=== PATIENT | female | born 1975 | race Caucasian/White ===

== ENCOUNTER 2016-11-14 15:51 | Inpatient (IN) | payer OTHER ==
[~2016-11-14] VITALS: Ht 165.1 cm; Wt 54.9 kg
[2016-11-14] MEDS ORDERED: ONDANSETRON 4 MG INJ IV STA (19:12)
[2016-11-14] MEDS ORDERED: SOD CHLORIDE 0.9% 1,000 ML IV STA (19:12)
[2016-11-14 19:18] VITALS: TEMP 98.3
[2016-11-14 19:19] LABS: URINE BLOOD (Dip) POC Negative (NEGATIVE)
[2016-11-14 19:34] LABS: ADD SCAN DIFF NO
[2016-11-14 19:45] LABS: ADD UMIC NO; UR ASCORBIC ACID NEGATIVE (NEGATIVE); UR BILIRUBIN (Dip) NEGATIVE (NEGATIVE); UR BLOOD (Dip) NEGATIVE (NEGATIVE); UR CLARITY CLEAR (CLEAR); UR COLOR YELLOW (YELLOW); UR GLUCOSE (Dip) NEGATIVE (NEGATIVE); UR KETONES (Dip) TRACE mg/dL (NEGATIVE); UR LEUKOCYTE ESTERASE (Dip) NEGATIVE Leu/ul (NEGATIVE); UR NITRITE (Dip) NEGATIVE (NEGATIVE); UR SPECIFIC GRAVITY (Dip) 1.028 (1.003-1.030); UR TOTAL PROTEIN (Dip) NEGATIVE (NEGATIVE); UR UROBILINOGEN (Dip) NEGATIVE (NEGATIVE)
[2016-11-14 19:46] LABS: BASOPHILS % 0.4 % (0.0-2.0); EOSINOPHILS # 0.2 10^3/ul (0.0-0.5); EOSINOPHILS % 2.9 % (0.0-7.0); HEMATOCRIT 32.5 % (37.0-47.0); HEMOGLOBIN 9.5 g/dl (12.0-16.0); LYMPHOCYTES # 0.9 10^3/ul (0.8-2.9); LYMPHOCYTES % 15.7 % (15.0-51.0); MEAN CORPUSCULAR HEMOGLOBIN 21.6 pg (29.0-33.0); MEAN CORPUSCULAR HGB CONC 29.2 g/dl (32.0-37.0); MEAN CORPUSCULAR VOLUME 73.9 fl (82.0-101.0); MEAN PLATELET VOLUME 12.7 fl (7.4-10.4); MONOCYTE # 0.5 10^3/ul (0.3-0.9); MONOCYTES % 9.7 % (0.0-11.0); NEUTROPHILS % 71.1 % (39.0-77.0); PLATELET COUNT 298 10^3/UL (140-415); RED CELL DISTRIBUTION WIDTH 15.2 % (11.5-14.5); WHITE BLOOD COUNT 5.6 10^3/ul (4.8-10.8)
[2016-11-14 20:00] LABS: INR 0.94; PROTIME 12.6 Sec (12.2-14.2)
[2016-11-14 20:05] LABS: ALANINE AMINOTRANSFERASE 22 IU/L (13-69); ALBUMIN 4.7 g/dl (3.3-4.9); ALBUMIN/GLOBULIN RATIO 1.67; ALKALINE PHOSPHATASE 39 IU/L (42-121); ANION GAP 14 (8-16); ASPARTATE AMINO TRANSFERASE 15 IU/L (15-46); BILIRUBIN,INDIRECT 0.2 mg/dl (0-1.1); BILIRUBIN,TOTAL 0.2 mg/dl (0.2-1.3); BLOOD UREA NITROGEN 17 mg/dl (7-20); CALCIUM 9.2 mg/dl (8.4-10.2); CARBON DIOXIDE 30 mmol/L (21-31); CHLORIDE 99 mmol/L (97-110); GLUCOSE 91 mg/dl (70-220); SODIUM 140 mmol/L (135-144); TOTAL PROTEIN 7.5 g/dl (6.1-8.1)
[2016-11-14 20:20] LABS: TROPONIN-I < 0.012 ng/ml (0.00-0.12)
[2016-11-14] MEDS ORDERED: SOD CHLORIDE 0.9% 100 ML ONE (20:23)
[2016-11-14] MEDS ORDERED: IOHEXOL 300MG/ML 150 ML BTL ONE (20:23)
--- NOTE | 2016-11-14 20:24 | RADRPT ---
PROCEDURE: US Pelvis. CLINICAL INDICATION: 41-year-old female with ovarian cysts and history of weight loss. Not stated . TECHNIQUE: Multiple sonographic images of the pelvis were obtained utilizing a transabdominal and endovaginal technique. The images were reviewed on a PACS workstation. COMPARISON: No. FINDINGS: The uterus is visualized and measures 8.1 cm sagittal by 4.3 cm AP by 5.4 cm transverse. The endomet rial echo complex is inhomogeneous and measures up to 1.3 cm. There is no evidence for free fluid. T he right ovary has a normal echotexture and measures 3.2 x 2.4 cm . The left ovary has a normal ech otexture and measures 3 x 2.2 x 3.2 cm a 1.4 some left ovarian cyst is identified. No adnexal malgorzata s are noted. There is a hypoechoic area in the cul-de-sac which may represent a vascular marking or fluid. The technologist denies free fluid. The appearance is benign. IMPRESSION: 1. The endometrial stripe is thickened measuring 1.3 cm and appears slightly inhomogeneous. Follow -up imaging is recommended. 2. Hypoechoic subserosal dorsal lower uterine fibroid measuring 1.9 x 1.7 x 1.9 cm. 3. Normal blood flow to both ovaries. RPTAT:AAJJ Physician Ciaran Date Time Electronically viewed and signed by Physician Ciaran on 11/14/2016 20:23 MILLIE/
[2016-11-14 20:32] LABS: IRON 25 ug/dl (35-150)
--- NOTE | 2016-11-14 20:34 | RADRPT ---
PROCEDURE: XR Chest AP portable CLINICAL INDICATION: Abdominal pain TECHNIQUE: An AP portable radiograph of the chest was submitted. COMPARISON: None. FINDINGS: Support Hardware: None Cardiovascular: The cardiovascular silhouette appears unremarkable. Lung Clinton: The lung clinton appear clear with no nodule, alveolar infiltrate, or interstitial promi nence evident. Pleural Spaces: No pneumothorax or pleural effusion is identified. Osseous Structures: Mild diffuse degenerative endplate changes are seen to the thoracic spine. Soft Tissues: The soft tissues appear unremarkable. IMPRESSION: Unremarkable portable chest. Physician Anastacia Date Time Electronically viewed and signed by Physician Anastacia on 11/14/2016 20:34 RH/
[2016-11-14 20:35] LABS: CARCINOEMBRYONIC ANTIGEN 0.4 ng/ml (0.0-5.0)
[2016-11-14 20:41] LABS: TOTAL IRON BINDING CAPACITY 439 ug/dl (241-421)
[2016-11-14 21:09] LABS: FERRITIN 4.3 ng/ml (6.2-137.0)
[2016-11-14 22:00] VITALS: PULSE 86
[2016-11-14] MEDS ORDERED: POTASSIUM CHLORIDE (SR) 20 MEQ TAB PO ONE (22:15)
--- NOTE | 2016-11-14 22:17 | ERA ---
ER Documentation Chief Complaint Date/Time DATE: 11/14/16 TIME: 22:06 Chief Complaint Sent from MD for evaluation abnormal labs HPI 41-year-old woman referred here by her hematology oncologist for recent unexplained weight loss, over the last year she has lost over 80 pounds. She has had nausea, intermittent clear nonbloody nonbilious emesis, and multiple loose stools. She states she has body aches and pains all over including the chest back and abdomen. Her vomiting and diarrhea symptoms have been increasing recently. She has had no blood per rectum or melena. She denies hematuria or dysuria, no exertional chest pain, no fevers or chills, no headache or blurry vision. ROS All systems reviewed and are negative except as per history of present illness. Allergies Allergies: Coded Allergies: acetaminophen (Verified Allergy, Intermediate, 11/14/16) PMhx/Soc None History of Surgery: Yes (tuballigation ) Anesthesia Reaction: No Hx Neurological Disorder: No Hx Respiratory Disorders: No Hx Cardiac Disorders: Yes (hyperlipedemia) Hx Psychiatric Problems: No Hx Miscellaneous Medical Probl: Yes (anemia, "liver problems") Hx Alcohol Use: No Hx Substance Use: No Hx Tobacco Use: No Smoking Status: Never smoker FmHx Patient's mother had a history of uterine cancer and her father had prostate cancer. Family History: No diabetes Physical Exam Vitals Vital Signs Date Time Temp Pulse Resp B/P Pulse Ox O2 Delivery O2 Flow Rate FiO2 11/14/16 19:18 98.3 83 20 108/51 100 Room Air 11/14/16 16:04 98.3 101 20 151/91 98 Physical Exam GENERAL: Well-developed, well-nourished, appears dehydrated, afebrile HEENT: Moist mucous membranes, pink conjunctiva, no cervical spine tenderness or step-off deformities, no goiter, no jaundice or icterus, extraocular movements intact without pain. No submandibular induration, and no pharyngeal erythema NEURO: Alert and oriented 3, cranial nerves II through XII intact bilaterally, pupils equal round reactive to light, no focal deficits or facial asymmetry, sensation intact distally Strength 5/5 in upper and lower extremities bilaterally CARDIAC: Regular rate and rhythm, no murmurs rubs or gallops LUNGS: Clear bilaterally no wheezing crackles or stridor ABDOMEN: Soft nontender, no guarding, no rigidity, no rebound, no psoas sign no obturator sign. Normoactive bowel sounds SKIN: Warm and dry to touch, no abrasions, contusions, or hematomas, no lacerations, no ecchymosis, no target lesions, and without ulcers EXTREMITIES: No clubbing cyanosis or edema, calves are bilaterally symmetrical, no Homans sign, no popliteal cord sign. Distal pulses equal and bilateral PSYCH: Normal affect without agitation or irritability Result Diagram: 11/14/16192911/14/161929 Results 24 hrs Laboratory Tests Test 11/14/16 19:22 11/14/16 19:30 Bedside Urine pH (LAB) 5.5 Bedside Urine Protein (LAB) Negative Bedside Urine Glucose (UA) Negative Bedside Urine Ketones (LAB) Negative Bedside Urine Blood Negative Bedside Urine Nitrite (LAB) Negative Bedside Urine Leukocyte Esterase (L Negative White Blood Count 5.610^3/ul Red Blood Count 4.4010^6/ul Hemoglobin 9.5g/dl Hematocrit 32.5% Mean Corpuscular Volume 73.9fl Mean Corpuscular Hemoglobin 21.6pg Mean Corpuscular Hemoglobin Concent 29.2g/dl Red Cell Distribution Width 15.2% Platelet Count 27404^3/UL Mean Platelet Volume 12.7fl Neutrophils % 71.1% Lymphocytes % 15.7% Monocytes % 9.7% Eosinophils % 2.9% Basophils % 0.4% Nucleated Red Blood Cells % 0.0/100WBC Neutrophils # 4.010^3/ul Lymphocytes # 0.910^3/ul Monocytes # 0.510^3/ul Eosinophils # 0.210^3/ul Basophils # 0.010^3/ul Nucleated Red Blood Cells # 0.010^3/ul Prothrombin Time 12.6Sec Prothrombin Time Ratio 1.0 INR International Normalized Ratio 0.94 Urine Color YELLOW Urine Clarity CLEAR Urine pH 5.0 Urine Specific [place] 1.028 Urine Ketones TRACEmg/dL Urine Nitrite NEGATIVEmg/dL Urine Bilirubin NEGATIVEmg/dL Urine Urobilinogen NEGATIVEmg/dL Urine Leukocyte Esterase NEGATIVELeu/ul Urine Hemoglobin NEGATIVEmg/dL Urine Glucose NEGATIVEmg/dL Urine Total Protein NEGATIVEmg/dl Sodium Level 140mmol/L Potassium Level 3.0mmol/L Chloride Level 99mmol/L Carbon Dioxide Level 30mmol/L Anion Gap 14 Blood Urea Nitrogen 17mg/dl Creatinine 0.60mg/dl Glucose Level 91mg/dl Calcium Level 9.2mg/dl Iron Level 25ug/dl Total Iron Binding Capacity 439ug/dl Percent Iron Saturation 6% SAT Ferritin 4.3ng/ml Total Bilirubin 0.2mg/dl Direct Bilirubin 0.00mg/dl Indirect Bilirubin 0.2mg/dl Aspartate Amino Transf (AST/SGOT) 15IU/L Alanine Aminotransferase (ALT/SGPT) 22IU/L Alkaline Phosphatase 39IU/L Troponin I < 0.012ng/ml Total Protein 7.5g/dl Albumin 4.7g/dl Globulin 2.80g/dl Albumin/Globulin Ratio 1.67 Lipase 215U/L Carcinoembryonic Antigen 0.4ng/ml Serum HCG, Qualitative NEGATIVE Current Medications Medications (Trade) Dose Ordered Sig/Tam Route PRN Reason Start Time Stop Time Status Last Admin Dose Admin Sodium Chloride (NS) 1,000 ml @ 1,000 mls/hr Q1H STAT IV 11/14/16 19:12 11/14/16 20:11 DC 11/14/16 19:32 Ondansetron HCl (Zofran Inj) 4 mg ONCE STAT IV 11/14/16 19:12 11/14/16 19:16 DC 11/14/16 19:30 IV Flush 10 ml 10 ml STK-MED ONCE .ROUTE 11/14/16 20:23 11/14/16 20:24 DC 11/14/16 21:39 Sodium Chloride (NS) 100 ml @ ud STK-MED ONCE .ROUTE 11/14/16 20:23 11/14/16 20:24 DC 11/14/16 21:39 Iohexol (Omnipaque 300mg/ ml) 150 ml STK-MED ONCE .ROUTE 11/14/16 20:23 11/14/16 20:24 DC 11/14/16 21:39 Procedures/MDM IV line was established patient was placed on court monitor rhythm strip revealed a sinus rhythm at about 90 bpm with upright P and T waves. Patient was afebrile. I administered 1 L normal saline intravenously and Zofran 4 mg IV as well as morphine 4 mg IV with good response. Nonobstetric pelvic ultrasound was performed revealing a uterine fibroid although no concerning masses noted. Please refer to radiologist dictation for full report. Chest X-ray 1V Interpreted by me: Soft Tissue: No acute abnormalities Bones: No acute abnormalities Mediastinum/Cardiac Silhouette/Lungs: No acute abnormalities CT scan of the abdomen and pelvis with IV contrast has been performed and results are pending I will follow-up. CBC reveals mild anemia with a hemoglobin of 9.5, electrolytes reveal hypokalemia 3, liver function tests are normal, troponin negative. Urine analysis negative for infection. EKG performed, read by me: 93 bpm, normal sinus rhythm, normal axis, no acute ST segment changes, narrow QRS complex, with good R-wave progression in precordial leads. Iron level was low, TIBC high, ferritin low I obtained consultation with hematology oncologist Dr. Fischer and he agreed to consult the case. Patient admitted to [facility] for continued medical management and hematology oncology consultation, possible GI consultation. Departure Diagnosis: Primary Impression: Unexplained weight loss Additional Impressions: Vomiting and diarrhea Anemia Qualified Code: D64.9 - Anemia, unspecified type Acute hypokalemia Condition: JAY JAY Torres MD Nov 14, 2016 22:16
--- NOTE | 2016-11-14 22:27 | RADRPT ---
PROCEDURE: CT ABDOMEN/PELVIS WITH CONTRAST CLINICAL INDICATION: 41-year-old female with abdominal pain and weight loss. TECHNIQUE: The study was performed utilizing a [employer] VCT 64-slice CT scanner. Direct axia l sections were obtained through the abdomen and pelvis with the use of 80 cc of Omnipaque-300 nonio anthony intravenous contrast material. Oral contrast material was utilized. Sagittal and coronal reform ations were obtained. One or more of the following dose reduction techniques were utilized: automate d exposure control, adjustment of the mA and/or kV according to patient's size or use of iterative r econstruction technique. The images were reviewed on a PACS workstation. CTD/vol = 7.2 mGy; Total Exam DLP = 365.5 mGy-cm. COMPARISON: None. FINDINGS: There is trace bibasilar subsegmental atelectasis. There is no evidence for significant pleural eff usion. The liver has a normal size and contour without focal areas of abnormal density or contrast enhancement. There is minimal nonspecific periportal edema. No intrahepatic nor extrahepatic biliar y ductal dilatation is seen. The gallbladder is contracted but without evidence for calcified stones , significant wall thickening or pericholecystic fluid. The pancreas is without areas of abnormal at tenuation or contrast enhancement. This spleen is identified and has a normal size without abnormal density or contrast enhancement. The adrenal glands are unremarkable. The kidneys are functional bi laterally without abnormal density. No hydroureteronephrosis nor nephroureterolithiasis is evident. The urinary bladder contains urine. There is no evidence for bowel obstruction. The appendix is vis ualized and is without edema or surrounding inflammatory reaction. The uterus is unremarkable. There is trace pelvic free fluid. The aortoiliac vessels are without aneurysmal dilatation. The osse ous structures are intact. IMPRESSION: 1. Minimal nonspecific periportal edema. 2. No CT evidence for appendicitis. 3. Trace pelvic free fluid. .Steve Rowan MD, MD Date Time Electronically viewed and signed by .Steve Rowan MD, MD on 11/14/2016 22:26 .M/
[2016-11-14 23:11] VITALS: BP 111/51; RESP 18
[2016-11-14 23:23] VITALS: Ht 165.1 cm; Wt 54.9 kg
[2016-11-15] MEDS ORDERED: NACL 0.9% 3 ML SYG IV SCH
[2016-11-15] MEDS ORDERED: ACETAMINOPHEN 325 MG TAB PO PRN
[2016-11-15] MEDS ORDERED: ONDANSETRON 4 MG INJ IV PRN
[2016-11-15] MEDS ORDERED: DOCUSATE SODIUM 100 MG CAP PO PRN
[2016-11-15] MEDS ORDERED: morphine 2 MG INJ IV PRN
[2016-11-15] MEDS ORDERED: ZOLPIDEM 5 MG TAB PO PRN
[2016-11-15] MEDS ORDERED: POTASSIUM CHLORIDE 250 ML IVPB ONE
[2016-11-15] MEDS ORDERED: METOCLOPRAMIDE 10 MG INJ IV PRN
[2016-11-15] MEDS ORDERED: HYDROCODONE/APAP (5/325) TAB PO PRN
[2016-11-15] MEDS: D5W-0.45 NACL + KCL 20 MEQ 1,000 ML IV SCH ×3 (00:30→16:51)
[2016-11-15] MEDS: SOD FERRIC GLUC COMPLX 125 MG in SOD CHLORIDE 0.9% 100 ML IVPB SCH (01:11)
[2016-11-15] MEDS: PANTOPRAZOLE 40 MG INJ IV SCH (05:33)
[2016-11-15 06:07] LABS: ADD SCAN DIFF NO
[2016-11-15 06:12] LABS: BASOPHILS % 0.2 % (0.0-2.0); EOSINOPHILS # 0.2 10^3/ul (0.0-0.5); EOSINOPHILS % 4.7 % (0.0-7.0); HEMATOCRIT 27.1 % (37.0-47.0); HEMOGLOBIN 7.9 g/dl (12.0-16.0); MEAN CORPUSCULAR HEMOGLOBIN 21.7 pg (29.0-33.0); MEAN CORPUSCULAR HGB CONC 29.2 g/dl (32.0-37.0); MEAN CORPUSCULAR VOLUME 74.5 fl (82.0-101.0); MEAN PLATELET VOLUME 12.3 fl (7.4-10.4); MONOCYTE # 0.5 10^3/ul (0.3-0.9); MONOCYTES % 11.6 % (0.0-11.0); NEUTROPHIL # 2.8 10^3/ul (1.6-7.5); NEUTROPHILS % 60.9 % (39.0-77.0); PLATELET COUNT 195 10^3/UL (140-415); RED BLOOD COUNT 3.64 10^6/ul (4.20-5.40); RED CELL DISTRIBUTION WIDTH 15.5 % (11.5-14.5); WHITE BLOOD COUNT 4.6 10^3/ul (4.8-10.8)
--- NOTE | 2016-11-15 06:13 | HP ---
DATE OF ADMISSION: 11/14/2016 TIME: 11:30 p.m. CHIEF COMPLAINT: Abdominal pain, weight loss. HISTORY OF PRESENT ILLNESS: The patient is a 41-year-old female who was referred by hematology onco logist for significant weight loss over the past year. She reportedly lost 80 pounds. She states th at she lost a significant amount of weight over the past several weeks as well. The patient reports diffuse pain throughout her body. She has had nausea and abdominal pain for the past year and nonb ilious emesis, as well as loose stools with melena. The patient states her body aches are throughou t her body, but worse in her bilateral hips. She states that she has pain in her chest that is exac erbated by deep breaths, as well as raising her left arm. The patient states that she has had persi stent vaginal bleeding over the past year. She states that she did have what appears to be a D and C. She states that she did not have cancer, was told that she had a cyst. She was also told that s he needs a hysterectomy. The patient also stated that she had an EGD and colonoscopy recently. The colonoscopy showed bacteria. Type is unclear, but she was given clindamycin for it. The patient s tates that the EEG showed only a hernia. The patient has no other complaints at this time. PAST MEDICAL HISTORY: 1. History of diabetes, not on any medications. No p.o. meds no insulin. 2. Dyslipidemia. 3. Dysfunctional uterine bleeding for the past year, status post what appears to be a D and C that should a cyst, with recommendation for a hysterectomy. PAST SURGICAL HISTORY: Tubal ligation. HOME MEDICATIONS: W None reported. SOCIAL HISTORY: Denies any alcohol, tobacco, or drug abuse. REVIEW OF SYSTEMS: A 12-point review of systems was negative except for that listed in the HPI. PHYSICAL EXAMINATION: VITAL SIGNS: Temperature is 98.7, pulse 86, respiratory rate 18, BP is 111/51, saturation 99% on ro om air. GENERAL: In mild distress, alert and oriented. HEENT: Normocephalic, atraumatic. LUNGS: Clear to auscultation. CARDIOVASCULAR: Regular rate and rhythm. ABDOMEN: Nondistended, soft. Mild tenderness to palpation. EXTREMITIES: No clubbing, cyanosis, or edema. LABORATORY: White count 7.6, hemoglobin 9.5, MCV 73.9, platelets 298. Chemistry: Sodium is 140, p otassium is 3.0, protein is low at 4.38, TIBC is high at 439, iron is low at 25, percent saturation is 6. Lipase is slightly elevated at 215. LFTs are within normal limits, except for an alkaline ph osphatase of 39. INR is 1. UA shows trace ketones, but otherwise normal. DIAGNOSTICS: Pelvic ultrasound shows the endometrial stripe is thickened, measuring 1.3 cm and appe ars slightly inhomogeneous. There is a hypoechoic subserosal dorsal lower uterine fibroid measuring 1.9 x 1.7 x 1.9 cm. Normal blood flow to both ovaries. Chest x-ray is unremarkable. Abdominal pe lvis CT shows minimal nonspecific periportal edema. No CT evidence for appendicitis. Trace pelvic free fluid. ASSESSMENT AND PLAN: 1. Weight loss of unknown origin. The patient has had significant weight loss, particularly over t he past month. The cause is unclear at this time. The patient states that she has a decreased appet ite. She does have some loose stools. She did have an EGD and colonoscopy recently that just showe d a hiatal hernia and unknown bacteria in her stool, which she was given clindamycin for. The patie nt does have a history of diabetes and was not on any medications. There is the possibility the pat tanner has severe gastroparesis with diabetes and has lost a significant amount of weight as a result of the gastroparesis, with likely improvement of her diabetes, hence understating how severe her favio betes once was. The patient may benefit from a follow through study to evaluate for gastroparesis. Hence, the patient may also benefit from erythromycin and Reglan for her gastroparesis, if this is a new diagnosis during this hospitalization. 2. Microcytic anemia secondary to iron deficiency from dysfunctional uterine bleeding from fibroids . The patient does have known fibroids and she has been told that she needs a hysterectomy at some point. Ultrasound here does confirm her uterine fibroids. Of note, the patient does have a family history of uterine cancer, as her mom did have this diagnosis. Will transfuse Ferrlecit IV. Hemato logy/oncology is aware of the patient's admission status and does follow the patient as an outpatien t. Will the patient in the a.m. 3. Hypokalemia. Will replete. 4. Diffuse body pain. The patient's hip pain is likely secondary to osteoarthritis. The patient h as a history of morbid obesity and while now she appears within normal weight, she likely had destru ction of multiple joints, including her hips. The patient also has pain in her left shoulder, likel y also from mild arthritis, as it does get worse when she elevates her left shoulder. Will treat he r pain with [place] and morphine as needed. 5. History of morbid obesity. Once again, the patient has lost significant weight, is no longer mo rbidly obese, but may have sequelae at this time from both her previous obesity and previous diabete s, which was likely uncontrolled, as she was not taking any medications. 6. Prophylaxis. SCDs. Dictated By: KELSIE BRADLEY MD BS/NTS Conf#: [id number] DID#: [id number]
[2016-11-15 06:48] LABS: CALCIUM 8.9 mg/dl (8.4-10.2); CHOL/HDL RATIO 2.8 RATIO; CREATININE 0.57 mg/dl (0.44-1.00); MAGNESIUM 1.9 mg/dl (1.7-2.5); PHOSPHORUS 3.3 mg/dl (2.5-4.9); POTASSIUM 4.8 mmol/L (3.5-5.1)
[2016-11-15 06:58] LABS: T3 UPTAKE 31.4 % (23.5-40.5)
[2016-11-15 08:23] VITALS: BP 100/58; RESP 18
[2016-11-15] MEDS ORDERED: SOD FERRIC GLUC COMPLX 125 MG in SOD CHLORIDE 0.9% 100 ML IVPB SCH (13:00)
[2016-11-15] MEDS ORDERED: BARIUM SULF 2% 450 ML BTL (BERRY SMOOTHIE) PO ONE (13:00)
--- NOTE | 2016-11-15 13:00 | PN ---
Date/Time of Note Date/Time of Note DATE: 11/15/16 TIME: 12:55 Assessment/Plan VTE Prophylaxis VTE Prophylaxis Intervention: SCD's Lines/Catheters IV [facility] [place] [employer] line still needed: No Urinary Cath still in place: No Assessment/Plan Assessment/Plan 41 year old female with rapid weight loss on unknown origin, abdominal pain, and recurrent emesis 1. Weight loss of unknown origin. The patient has had significant weight loss of about 30 ponds in one month. The cause is unclear at this time. The patient states that she has a decreased appetite. She does have some loose stools. She did have an EGD and colonoscopy recently that just showed a hiatal hernia and unknown bacteria in her stool, which she was given clindamycin for. The patient does have a history of diabetes and was not on any medications. There is the possibility the patient has severe gastroparesis with diabetes and has lost a significant amount of weight. GI re-consulted to find out the results of H. pylori and re-evaluation. 2. Microcytic anemia secondary to iron deficiency from dysfunctional uterine bleeding from fibroids. The patient does have known fibroids and she has been told that she needs a hysterectomy at some point. Ultrasound here does confirm her uterine fibroids. Of note, the patient does have a family history of uterine cancer, as her mom did have this diagnosis. Will transfuse Ferrlecit IV. Hematology/oncology is aware of the patient's admission status and does follow the patient as an outpatient. Gabino ed/w Dr. Tolliver and additional imaginig studies are being done. 3. Hypokalemia. Improved. 4. Diffuse body pain. The patient's hip pain is likely secondary to osteoarthritis. The patient has a history of morbid obesity and while now she appears within normal weight, she likely had destruction of multiple joints, including her hips. The patient also has pain in her left shoulder, likely also from mild arthritis, as it does get worse when she elevates her left shoulder. Will treat her pain with [place] and morphine as needed. 5. Prophylaxis. SCDs. Subjective 24 Hr Interval Summary Free Text/Dictation No abdominal pain or vomitting overnight, but she is not able to keep any food down. No other complaints. Exam/Review of Systems Vital Signs Vitals Vital Signs Date Time Temp Pulse Resp B/P Pulse Ox O2 Delivery O2 Flow Rate FiO2 11/15/16 08:23 98.8 82 18 100/58 98 11/14/16 22:00 Room Air Intake and Output 11/14/16 11/14/16 11/15/16 15:00 23:00 07:00 Intake Total 1000 ml 560 ml Output Total 400 ml Balance 1000 ml 160 ml Exam Constitutional: alert, oriented, well developed Psych: no complaints Head: normocephalic Eyes: nl conjunctiva ENMT: nl external ears & nose Neck: supple Respiratory: clear to auscultation Cardiovascular: regular rate and rhythm Gastrointestinal: soft Extremities: normal pulses Neurological: 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 Results Result Diagram: 11/15/16 0535 11/15/16 0535 Results 24 hrs Laboratory Tests Test 11/14/16 19:22 11/14/16 19:30 11/15/16 05:35 Bedside Urine pH (LAB) 5.5 Bedside Urine Protein (LAB) Negative Bedside Urine Glucose (UA) Negative Bedside Urine Ketones (LAB) Negative Bedside Urine Blood Negative Bedside Urine Nitrite (LAB) Negative Bedside Urine Leukocyte Esterase (L Negative White Blood Count 5.6 4.6 L Red Blood Count 4.40 3.64 L Hemoglobin 9.5 L 7.9 L Hematocrit 32.5 L 27.1 L Mean Corpuscular Volume 73.9 L 74.5 L Mean Corpuscular Hemoglobin 21.6 L 21.7 L Mean Corpuscular Hemoglobin Concent 29.2 L 29.2 L Red Cell Distribution Width 15.2 H 15.5 H Platelet Count 298 195 # Mean Platelet Volume 12.7 H 12.3 H Neutrophils % 71.1 60.9 Lymphocytes % 15.7 22.0 Monocytes % 9.7 11.6 H Eosinophils % 2.9 4.7 Basophils % 0.4 0.2 Nucleated Red Blood Cells % 0.0 0.0 Neutrophils # 4.0 2.8 Lymphocytes # 0.9 1.0 Monocytes # 0.5 0.5 Eosinophils # 0.2 0.2 Basophils # 0.0 0.0 Nucleated Red Blood Cells # 0.0 0.0 Prothrombin Time 12.6 Prothrombin Time Ratio 1.0 INR International Normalized Ratio 0.94 Urine Color YELLOW Urine Clarity CLEAR Urine pH 5.0 Urine Specific [place] 1.028 Urine Ketones TRACE A Urine Nitrite NEGATIVE Urine Bilirubin NEGATIVE Urine Urobilinogen NEGATIVE Urine Leukocyte Esterase NEGATIVE Urine Hemoglobin NEGATIVE Urine Glucose NEGATIVE Urine Total Protein NEGATIVE Sodium Level 140 140 Potassium Level 3.0 L 4.8 Chloride Level 99 110 # Carbon Dioxide Level 30 25 Anion Gap 14 10 Blood Urea Nitrogen 17 12 Creatinine 0.60 0.57 Glucose Level 91 72 Calcium Level 9.2 8.9 Iron Level 25 L Total Iron Binding Capacity 439 H Percent Iron Saturation 6 L Ferritin 4.3 L Total Bilirubin 0.2 Direct Bilirubin 0.00 Indirect Bilirubin 0.2 Aspartate Amino Transf (AST/SGOT) 15 Alanine Aminotransferase (ALT/SGPT) 22 Alkaline Phosphatase 39 L Troponin I < 0.012 Total Protein 7.5 Albumin 4.7 Globulin 2.80 Albumin/Globulin Ratio 1.67 Lipase 215 Carcinoembryonic Antigen 0.4 Serum HCG, Qualitative NEGATIVE Hemoglobin A1c 5.0 Phosphorus Level 3.3 Magnesium Level 1.9 Triglycerides Level 83 Cholesterol Level 110 LDL Cholesterol, Calculated 54 HDL Cholesterol 39 Cholesterol/HDL Ratio 2.8 Free Thyroxine Index 2.39 Thyroxine (T4) 7.6 Triiodothyronine (T3) Uptake 31.4 Medications Medications Current Medications Potassium Chloride/Dextrose/ Sod Cl (D5-1/2ns + KCl 20 Meq) 1,000 ml @ 100 mls/ hr Q10H IV Last administered on 11/15/16t 00:30; Admin Dose 100 MLS/HR; Start 11/14/16 at 23:56 Ondansetron HCl (Zofran Inj) 4 mg Q6H PRN IV NAUSEA AND/OR VOMITING; Start at 00:00 Acetaminophen (Tylenol Tab) 650 mg Q6H PRN PO PAIN LEVEL 1-3 OR FEVER; Start at 00:00 Acetaminophen/ Hydrocodone Bitart ([place] (5/325)) 1 tab Q6H PRN PO MODERATE PAIN LEVEL 4-6; Start 11/15/16 at 00:00 Morphine Sulfate (morphine) 2 mg Q4H PRN IV SEVERE PAIN LEVEL 7-10; Start 11/15 at 00:00 Docusate Sodium (Colace) 100 mg Q12H PRN PO CONSTIPATION; Start 11/15/16 at 00: 00 Zolpidem Tartrate (Ambien) 5 mg QHS PRN PO SLEEP; Start 11/15/16 at 00:00 Pantoprazole 40 mg 40 mg DAILY@06 IV Last administered on 11/15/16 05:33; Admin Dose 40 MG; Start 11/15/16 at 06:00 Ferric Sodium Gluconate Complex/ Sodium Chloride (Ferrlecit/NS) 110 ml @ 100 mls/hr Q24H IVPB Last administered on 11/15/16 01:11; Admin Dose 100 MLS/HR; Start 11/15/16 at 00:00; Stop 11/17/16 at 01:05 Simethicone (Mylicon) 80 mg Q6 PO Last administered on 11/15/16 05:33; Admin Dose 80 MG; Start 11/15/16 at 00:00 Metoclopramide HCl (Reglan) 5 mg Q6H PRN IV NAUSEA; Start 11/15/16 at 00:00 SCOTT HERNANDEZ MD Nov 15, 2016 13:00
--- NOTE | 2016-11-15 13:17 | CONS ---
DATE OF ADMISSION: 11/14/2016 DATE OF CONSULTATION: 11/15/2016 TYPE OF CONSULTATION: Hematology/Oncology HISTORY OF PRESENT ILLNESS: Ms. Oreilly is a 41-year-old lady with a history of about mo re than 80-pound weight loss since 01/2016, plus iron deficiency anemia. She says she has no appeti te and has nausea and vomiting. She also complains of pain in the left scapular area. She denies a ny diarrhea. The patient on 10/23/2016 had an EGD and colonoscopy which showed only mild gastritis. She was admitted because of the severe weight loss. Her CBC and CMP were normal except that her h emoglobin was 7.9 with MCV 74, with a ferritin 4.3 and iron saturation 6%. PAST MEDICAL HISTORY: She has history of diabetes, hyperlipidemia. She also has menorrhagia with p eriods lasting about 8 days every month. Her ultrasound showed a 1.9 cm fibroid on this admission. REVIEW OF SYSTEMS: A 10-point review of systems was done. PHYSICAL EXAMINATION: GENERAL: Shows a moderately built female who shows evidence of recent weight loss. She is alert, o riented, cooperative. ENT: Normal. NECK: Supple without any abnormal masses or pulsations. HEART AND LUNGS: Unremarkable. BREASTS: Without any lumps. ABDOMEN: Soft. No hepatosplenomegaly. External genitalia normal. EXTREMITIES: Showed no edema but shows evidence of muscle loss. CENTRAL NERVOUS SYSTEM: No focal defects. LYMPH NODES: No peripheral lymphadenopathy. IMAGING: Her chest x-ray was unremarkable. IMPRESSION: 1. Severe iron deficiency anemia, most likely secondary to menorrhagia. 2. Anorexia and vomiting with more than 80 pound weight loss of unknown etiology, rule out underlyi ng malignancy. 3. History of diabetes. 4. History of left scapular area pain. PLAN AND DISCUSSION: This patient with menorrhagia has iron deficiency anemia, but her major proble m is her more than 80-pound weight loss and her aches and pains. We need to rule out underlying mal ignancy, but she could also have collagen disorder. We will add a B12, folate, LDH, haptoglobin, TS H and also TORO, rheumatoid factor, sed rate. We will also get a CT of the chest and abdomen and ree valuate her. Thank you again very much. Dictated By: LOTUS FRANCO MD PC/NTS Conf#: [id number] DID#: [id number]
[2016-11-15] MEDS ORDERED: IOHEXOL 300MG/ML 150 ML BTL ONE (15:50)
[2016-11-15] MEDS ORDERED: SOD CHLORIDE 0.9% 100 ML ONE (15:50)
[2016-11-15 16:09] LABS: THYROID STIMULATING HORMONE 0.672 MIU/L (0.465-4.680)
--- NOTE | 2016-11-15 16:46 | RADRPT ---
PROCEDURE: CT chest, abdomen and pelvis with and without contrast. CLINICAL INDICATION: Weight loss TECHNIQUE: Following oral contrast, spiral CT of the scan of the chest, abdomen and pelvis was per formed and is reconstructed at 5 mm contiguous axial intervals from the dome of the diaphragm to the inferior pubic rami.. The patient was and rescanned with intravenous contrast. Sagittal and coron al reformatted images were obtained from the axial source images. The calculated radiation dose kerri ures 817 mGy centimeters. The CTDI measures 6 mGy. COMPARISON: CT abdomen pelvis November 14. FINDINGS: Chest - The lungs are clear of any infiltrate or nodule. Calcified granuloma is seen in the central left lo wer lobe and there is a benign appearing 3 mm pleural-based micro nodule on the lateral aspect of th e left lower lobe. No pleural or pericardial effusion is present. There is no pneumothorax. Calci fied nonenlarged left hilar nodes are identified. Thoracic aorta appears normal. No axillary, supr aclavicular or internal mammary chain adenopathy is seen. No hilar or mediastinal adenopathy or mas ses present. Note chest wall mass is seen. The osseous structures appear normal. Abdomen pelvis - The liver is of normal size, contour and attenuation with no mass or ductal dilatation. No gallston es are visualized. No splenic, adrenal or pancreatic abnormality is present. Kidneys enhance symme trically. No hydronephrosis, calculus or masses present. Ureters are of normal course and caliber with no stone. No bladder masses stone is present. The uterus and ovaries appear normal. There is trace pelvic ascites. No aneurysm is seen. There is no retroperitoneal or mesenteric adenopathy. No bowel mass or obstruction is noted. The appendix is normal. No phlegmon or pneumoperitoneum is seen. The osseous structures are intact. IMPRESSION: No lung mass, pneumonia or adenopathy. Old granulomatous disease. No abdominal mass or adenopathy. .Clifford Martin MD, Date Time Electronically viewed and signed by .Clifford Martin MD, MD on 11/15/2016 16:45 .A/
--- NOTE | 2016-11-15 16:46 | RADRPT ---
PROCEDURE: CT Chest. CLINICAL INDICATION: Please see report CT chest, abdomen same date TECHNIQUE: As above COMPARISON: As above FINDINGS: As above IMPRESSION: As above .Clifford Martin MD, Date Time Electronically viewed and signed by .Clifford Martin MD, MD on 11/15/2016 16:46 .A/
[2016-11-15 19:25] VITALS: BP 111/51; RESP 18
[2016-11-16] MEDS: SOD FERRIC GLUC COMPLX 125 MG in SOD CHLORIDE 0.9% 100 ML IVPB SCH (00:23)
[2016-11-16] MEDS: PANTOPRAZOLE 40 MG INJ IV SCH (05:50)
[2016-11-16] MEDS: D5W-0.45 NACL + KCL 20 MEQ 1,000 ML IV SCH ×4 (05:56→19:29)
[2016-11-16 05:58] LABS: ADD SCAN DIFF NO
[2016-11-16 06:02] LABS: BASOPHILS % 0.4 % (0.0-2.0); EOSINOPHILS # 0.3 10^3/ul (0.0-0.5); EOSINOPHILS % 5.3 % (0.0-7.0); HEMATOCRIT 29.6 % (37.0-47.0); LYMPHOCYTES # 1.2 10^3/ul (0.8-2.9); LYMPHOCYTES % 23.7 % (15.0-51.0); MEAN CORPUSCULAR HEMOGLOBIN 23.1 pg (29.0-33.0); MEAN CORPUSCULAR HGB CONC 30.4 g/dl (32.0-37.0); MEAN CORPUSCULAR VOLUME 75.9 fl (82.0-101.0); MEAN PLATELET VOLUME 12.2 fl (7.4-10.4); MONOCYTE # 0.8 10^3/ul (0.3-0.9); MONOCYTES % 14.9 % (0.0-11.0); NEUTROPHIL # 2.8 10^3/ul (1.6-7.5); NEUTROPHILS % 55.1 % (39.0-77.0); PLATELET COUNT 205 10^3/UL (140-415); WHITE BLOOD COUNT 5.1 10^3/ul (4.8-10.8)
[2016-11-16 06:43] LABS: CALCIUM 8.7 mg/dl (8.4-10.2); CHOL/HDL RATIO 2.8 RATIO; CREATININE 0.75 mg/dl (0.44-1.00); POTASSIUM 3.8 mmol/L (3.5-5.1)
[2016-11-16 07:44] VITALS: BP 102/74; RESP 20
--- NOTE | 2016-11-16 13:22 | PN ---
Date/Time of Note Date/Time of Note DATE: 11/16/16 TIME: 13:15 Assessment/Plan VTE Prophylaxis VTE Prophylaxis Intervention: SCD's Lines/Catheters IV Catheter Type (from [facility]): Peripheral IV Central line still needed: No Urinary Cath still in place: No Assessment/Plan Assessment/Plan 41 year old female with rapid weight loss on unknown origin, abdominal pain, and recurrent emesis: improving 1. Weight loss of unknown origin. The patient has had significant weight loss of about 30 ponds in one month. The cause is unclear at this time. The patient states that she has a decreased appetite. She does have some loose stools. She did have an EGD and colonoscopy recently that just showed a hiatal hernia and unknown bacteria in her stool, which she was given clindamycin for. The patient does have a history of diabetes and was not on any medications. There is the possibility the patient has severe gastroparesis with diabetes and has lost a significant amount of weight. GI re-consulted to find out the results of H. pylori and re-evaluation. CT scans of chest abdomen and pelvis basically unremarakable. Will begin full liquid diet and advance as tolerated. 2. Microcytic anemia secondary to iron deficiency from dysfunctional uterine bleeding from fibroids. Hgb improved after one unit PRBC. Still receiving IV iron. The patient does have known fibroids and she has been told that she needs a hysterectomy at some point. Ultrasound here does confirm her uterine fibroids. Hematology/oncology is aware of the patient's admission status and does follow the patient as an outpatient. Case d/w Dr. Tolliver. 3. Hypokalemia. Resolved. GI/DVT prophylaxis Subjective 24 Hr Interval Summary Free Text/Dictation Complains of mild left lower quadrant pain. States she can tolerate protein drink like ensure (at the bedside). Exam/Review of Systems Vital Signs Vitals Vital Signs Date Time Temp Pulse Resp B/P Pulse Ox O2 Delivery O2 Flow Rate FiO2 11/16/16 07:44 98.9 74 20 102/74 98 11/14/16 22:00 Room Air Intake and Output 11/15/16 11/15/16 11/16/16 15:00 23:00 07:00 Intake Total 1350 ml 1110 ml Output Total 700 ml Balance 650 ml 1110 ml Exam Constitutional: alert, oriented Psych: no complaints Head: normocephalic Eyes: nl conjunctiva ENMT: nl external ears & nose Neck: supple Respiratory: clear to auscultation Cardiovascular: regular rate and rhythm Gastrointestinal: non-tender, soft Extremities: normal pulses Neurological: TIP FINISHER II-XII intact Results Result Diagram: 11/16/16 0520 11/16/16 0520 Results 24 hrs Laboratory Tests Test 11/15/16 14:00 11/16/16 05:20 Vitamin B12 Level > 1000 H Folate 13.0 Thyroid Stimulating Hormone (TSH) 0.672 White Blood Count 5.1 Red Blood Count 3.90 L Hemoglobin 9.0 L Hematocrit 29.6 L Mean Corpuscular Volume 75.9 L Mean Corpuscular Hemoglobin 23.1 L Mean Corpuscular Hemoglobin Concent 30.4 L Red Cell Distribution Width 16.0 H Platelet Count 205 Mean Platelet Volume 12.2 H Neutrophils % 55.1 Lymphocytes % 23.7 Monocytes % 14.9 H Eosinophils % 5.3 Basophils % 0.4 Nucleated Red Blood Cells % 0.0 Neutrophils # 2.8 Lymphocytes # 1.2 Monocytes # 0.8 Eosinophils # 0.3 Basophils # 0.0 Nucleated Red Blood Cells # 0.0 Sodium Level 139 Potassium Level 3.8 Chloride Level 105 Carbon Dioxide Level 27 Anion Gap 11 Blood Urea Nitrogen 6 L Creatinine 0.75 Glucose Level 80 Hemoglobin A1c 5.1 Calcium Level 8.7 Lactate Dehydrogenase 517 Triglycerides Level 69 Cholesterol Level 100 LDL Cholesterol, Calculated 51 HDL Cholesterol 35 Cholesterol/HDL Ratio 2.8 Medications Medications Current Medications Potassium Chloride/Dextrose/ Sod Cl (D5-1/2ns + KCl 20 Meq) 1,000 ml @ 100 mls/ hr Q10H IV Last administered on 11/16/16t 09:11; Admin Dose 100 MLS/HR; Start 11/14/16 at 23:56 Ondansetron HCl (Zofran Inj) 4 mg Q6H PRN IV NAUSEA AND/OR VOMITING; Start at 00:00 Acetaminophen (Tylenol Tab) 650 mg Q6H PRN PO PAIN LEVEL 1-3 OR FEVER; Start at 00:00 Acetaminophen/ Hydrocodone Bitart ([place] (5/325)) 1 tab Q6H PRN PO MODERATE PAIN LEVEL 4-6; Start 11/15/16 at 00:00 Morphine Sulfate (morphine) 2 mg Q4H PRN IV SEVERE PAIN LEVEL 7-10; Start 11/15 at 00:00 Docusate Sodium (Colace) 100 mg Q12H PRN PO CONSTIPATION; Start 11/15/16 at 00: 00 Zolpidem Tartrate (Ambien) 5 mg QHS PRN PO SLEEP; Start 11/15/16 at 00:00 Pantoprazole 40 mg 40 mg DAILY@06 IV Last administered on 11/16/16 05:50; Admin Dose 40 MG; Start 11/15/16 at 06:00 Ferric Sodium Gluconate Complex/ Sodium Chloride (Ferrlecit/NS) 110 ml @ 100 mls/hr Q24H IVPB Last administered on 11/16/16 00:23; Admin Dose 100 MLS/HR; Start 11/15/16 at 00:00; Stop 11/17/16 at 01:05 Simethicone (Mylicon) 80 mg Q6 PO Last administered on 11/16/16 12:24; Admin Dose 80 MG; Start 11/15/16 at 00:00 Metoclopramide HCl (Reglan) 5 mg Q6H PRN IV NAUSEA; Start 11/15/16 at 00:00 SOCTT HERNANDEZ MD Nov 16, 2016 13:22
--- NOTE | 2016-11-16 13:40 | RADRPT ---
PROCEDURE: XR Abdomen. CLINICAL INDICATION: Abdomen pain. TECHNIQUE: AP supine abdomen x-ray. COMPARISON: CT scan of the abdomen and pelvis dated 11/15/2016. FINDINGS: There is contrast throughout the colon. There is no evidence of obstruction. There are no abnormal calcifications overlying the urinary tracts. The osseus structures are unremarkable. IMPRESSION: 1. Contrast throughout the colon from prior CT scan. For this reason, small bowel follow-through w as not performed. 2. No evidence of obstruction. RPTAT: QQ .Sky Redding MD, MD Date Time Electronically viewed and signed by .Sky Redding MD, MD on 11/16/2016 13:39 .R/
[2016-11-16 15:26] LABS: RHEUMATOID FACTOR POSITIVE (NEGATIVE)
[2016-11-16 19:53] VITALS: BP 111/53; RESP 18
[2016-11-17] MEDS: SOD FERRIC GLUC COMPLX 125 MG in SOD CHLORIDE 0.9% 100 ML IVPB SCH (00:09)
[2016-11-17] MEDS: D5W-0.45 NACL + KCL 20 MEQ 1,000 ML IV SCH ×4 (01:56→20:26)
[2016-11-17 05:58] LABS: ADD SCAN DIFF NO
[2016-11-17 06:09] LABS: BASOPHILS % 0.6 % (0.0-2.0); EOSINOPHILS # 0.2 10^3/ul (0.0-0.5); EOSINOPHILS % 3.4 % (0.0-7.0); HEMATOCRIT 28.8 % (37.0-47.0); HEMOGLOBIN 8.8 g/dl (12.0-16.0); LYMPHOCYTES # 1.2 10^3/ul (0.8-2.9); LYMPHOCYTES % 22.3 % (15.0-51.0); MEAN CORPUSCULAR HGB CONC 30.6 g/dl (32.0-37.0); MEAN CORPUSCULAR VOLUME 75.2 fl (82.0-101.0); MEAN PLATELET VOLUME 12.9 fl (7.4-10.4); MONOCYTE # 0.6 10^3/ul (0.3-0.9); NEUTROPHIL # 3.2 10^3/ul (1.6-7.5); NEUTROPHILS % 61.1 % (39.0-77.0); PLATELET COUNT 200 10^3/UL (140-415); RED BLOOD COUNT 3.83 10^6/ul (4.20-5.40); RED CELL DISTRIBUTION WIDTH 16.5 % (11.5-14.5); WHITE BLOOD COUNT 5.2 10^3/ul (4.8-10.8)
[2016-11-17] MEDS: PANTOPRAZOLE 40 MG INJ IV SCH (06:09)
[2016-11-17 06:43] LABS: CALCIUM 8.5 mg/dl (8.4-10.2); CREATININE 0.66 mg/dl (0.44-1.00); POTASSIUM 3.4 mmol/L (3.5-5.1)
[2016-11-17 07:37] VITALS: BP_SYST 102; BP_SYST 87; BP_DIAS 50; BP_DIAS 54; RESP 20
--- NOTE | 2016-11-17 07:42 | PN ---
DATE: 11/16/2016 HISTORY OF PRESENT ILLNESS: Ms. Oreilly is a 41-year-old lady with severe weight loss and abdomin al pain. She said she lost more than 80 pounds over the last 10 months. She also has anemia and yin s severe iron deficiency, probably is from menorrhagia. She also complains of pain in the abdomen a nd the left scapular area. She had 1 unit of packed cells yesterday and is on IV iron. PHYSICAL EXAMINATION: GENERAL: Shows moderately built female who shows evidence of recent weight loss. She is afebrile. HEENT, HEART, LUNGS: Normal. BREASTS: Without any lumps. ABDOMEN: Shows no hepatosplenomegaly. EXTREMITIES: Showed no edema, clubbing, or cyanosis. CENTRAL NERVOUS SYSTEM: No focal defects. LABORATORY DATA: Her CT of the chest, abdomen, and pelvis with IV contrast was unremarkable. Her C BC and CMP were normal except for microcytic anemia. IMPRESSION: 1. Severe iron deficiency anemia, most likely secondary to menorrhagia. 2. Anorexia, vomiting, and severe weight loss, status post esophagogastroduodenoscopy and colonosco py on 10/23/2016. 3. History of Helicobacter pylori disease. PLAN AND DISCUSSION: This patient with history of diabetes now has 80 pound weight loss and also ab dominal pain and poor appetite. Her GI workup recently, including colonoscopy and EGD, were unremar kable except for H. pylori. She needs treatment for that. Her CT of the chest, abdomen, and pelvis with IV contrast is also unremarkable. She is getting IV iron, which we should continue. We shoul d probably get a repeat GI evaluation, especially to treat her H. pylori disease, and to look for ot her etiologies for weight loss. Dictated By: LOTUS ANTON/NTS Conf#: [id number] DID#: [id number]
[2016-11-17] MEDS ORDERED: POTASSIUM CHLORIDE (SR) 20 MEQ TAB PO STA (08:14)
--- NOTE | 2016-11-17 08:23 | PN ---
Date/Time of Note Date/Time of Note DATE: 11/17/16 TIME: 08:21 Assessment/Plan VTE Prophylaxis VTE Prophylaxis Intervention: ambulation Lines/Catheters IV [facility] ([facility] [place] Urinary Cath still in place: No Assessment/Plan Assessment/Plan 41 year old female with rapid weight loss on unknown origin, abdominal pain, and recurrent emesis: improving 1. Weight loss of unknown origin. The patient has had significant weight loss of about 30 ponds in one month. The cause is unclear at this time. The patient states that she has a decreased appetite. She does have some loose stools. She did have an EGD and colonoscopy recently that just showed a hiatal hernia and unknown bacteria in her stool, which she was given clindamycin for. The patient does have a history of diabetes and was not on any medications. There is the possibility the patient has severe gastroparesis with diabetes and has lost a significant amount of weight. GI re-consulted to find out the results of H. pylori and re-evaluation. CT scans of chest abdomen and pelvis basically unremarakable. She is tolerating soft foods now. Will continue to monitor and if stable, we will d/c her home with outpatient follow-up. 2. Microcytic anemia secondary to iron deficiency from dysfunctional uterine bleeding from fibroids. Hgb improved after one unit PRBC. Still receiving IV iron. The patient does have known fibroids and she has been told that she needs a hysterectomy at some point. Ultrasound here does confirm her uterine fibroids. Hematology/oncology is aware of the patient's admission status and does follow the patient as an outpatient. Case d/w Dr. Tolliver. 3. Hypokalemia. We will replace today. GI/DVT prophylaxis Subjective 24 Hr Interval Summary Free Text/Dictation Eating cream of what for breakfast and some mild discomfort, but she is tolerating it. No emesis. Exam/Review of Systems Vital Signs Vitals Vital Signs Date Time Temp Pulse Resp B/P Pulse Ox O2 Delivery O2 Flow Rate FiO2 11/17/16 07:37 98.9 78 20 102/54 98 11/14/16 22:00 Room Air Intake and Output 11/16/16 11/16/16 11/17/16 15:00 23:00 07:00 Intake Total 1000 ml 800 ml 910 ml Output Total 1100 ml Balance 1000 ml -300 ml 910 ml Exam Constitutional: alert, oriented Psych: no complaints Head: normocephalic Eyes: nl conjunctiva ENMT: nl external ears & nose Neck: supple Respiratory: clear to auscultation Cardiovascular: regular rate and rhythm Gastrointestinal: soft Extremities: normal pulses Results Result Diagram: 11/17/16 0505 11/17/16 0505 Results 24 hrs Laboratory Tests Test 11/16/16 21:05 11/17/16 05:05 11/17/16 06:19 Stool Occult Blood NEGATIVE White Blood Count 5.2 Red Blood Count 3.83 L Hemoglobin 8.8 L Hematocrit 28.8 L Mean Corpuscular Volume 75.2 L Mean Corpuscular Hemoglobin 23.0 L Mean Corpuscular Hemoglobin Concent 30.6 L Red Cell Distribution Width 16.5 H Platelet Count 200 Mean Platelet Volume 12.9 H Neutrophils % 61.1 Lymphocytes % 22.3 Monocytes % 12.0 H Eosinophils % 3.4 Basophils % 0.6 Nucleated Red Blood Cells % 0.0 Neutrophils # 3.2 Lymphocytes # 1.2 Monocytes # 0.6 Eosinophils # 0.2 Basophils # 0.0 Nucleated Red Blood Cells # 0.0 Sodium Level 140 Potassium Level 3.4 L Chloride Level 106 Carbon Dioxide Level 28 Anion Gap 9 Blood Urea Nitrogen 7 Creatinine 0.66 Glucose Level 84 Calcium Level 8.5 Lab Scanned Report BLOOD TRANSFUSION Medications Medications Current Medications Potassium Chloride/Dextrose/ Sod Cl (D5-1/2ns + KCl 20 Meq) 1,000 ml @ 100 mls/ hr Q10H IV Last administered on 11/17/16t 08:07; Admin Dose 100 MLS/HR; Start 11/14/16 at 23:56 Ondansetron HCl (Zofran Inj) 4 mg Q6H PRN IV NAUSEA AND/OR VOMITING; Start at 00:00 Acetaminophen (Tylenol Tab) 650 mg Q6H PRN PO PAIN LEVEL 1-3 OR FEVER; Start at 00:00 Acetaminophen/ Hydrocodone Bitart ([place] (5/325)) 1 tab Q6H PRN PO MODERATE PAIN LEVEL 4-6; Start 11/15/16 at 00:00 Morphine Sulfate (morphine) 2 mg Q4H PRN IV SEVERE PAIN LEVEL 7-10; Start 11/15 at 00:00 Docusate Sodium (Colace) 100 mg Q12H PRN PO CONSTIPATION; Start 11/15/16 at 00: 00 Zolpidem Tartrate (Ambien) 5 mg QHS PRN PO SLEEP; Start 11/15/16 at 00:00 Pantoprazole (Protonix Iv) 40 mg DAILY@06 IV Last administered on 11/17/16 06: 09; Admin Dose 40 MG; Start 11/15/16 at 06:00 Simethicone (Mylicon) 80 mg Q6 PO Last administered on 11/17/16 06:08; Admin Dose 80 MG; Start 11/15/16 at 00:00 Metoclopramide HCl (Reglan) 5 mg Q6H PRN IV NAUSEA; Start 11/15/16 at 00:00 SCOTT HERANNDEZ MD Nov 17, 2016 08:23
--- NOTE | 2016-11-17 09:06 | CONS ---
Date/Time of Note Date/Time of Note DATE: 11/17/16 TIME: 08:56 Assessment/Plan Assessment/Plan Chief Complaint/Hosp Course 41 year old female with rapid weight loss on unknown origin, abdominal pain, and recurrent emesis: improving 1. Severe iron deficiency anemia (iron 25, TIBC 439, %sat 6, ferritin 4.3), most likely secondary to menorrhagia, thought dysfunctional uterine bleeding from fibroids. Hgb improved after one unit pRBC on 11/15/16. LDH normal at 517 , Vitamin B12, folate, TSH within normal limits, FOBT negative. Haptoglobin pending. Follow-up results of endometrial biopsy performed as outpatient. 2. Anorexia, vomiting, and severe weight loss, status post esophagogastroduodenoscopy and colonoscopy on 10/23/2016. 3. History of Helicobacter pylori disease. 4. 80 pounds weight loss of unclear origin. CT scan fairly unremarkable. RF 1 :1 but fairly low titer. TORO pending. PLAN AND DISCUSSION: This patient with history of diabetes now has 80 pound weight loss and also abdominal pain and poor appetite. Her GI workup recently, including colonoscopy and EGD, were unremarkable except for H. pylori. She needs treatment for that. Her CT of the chest, abdomen, and pelvis with IV contrast is also unremarkable. She is getting IV iron, which we should continue. 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 We should probably get a repeat GI evaluation, especially to treat her H. pylori disease, and to look for other etiologies for weight loss. CT CAP showed No lung mass, pneumonia or adenopathy. Old granulomatous disease. No abdominal mass or adenopathy. Minimal nonspecific periportal edema. No CT evidence for appendicitis. Trace pelvic free fluid. Pelvic US showed 1. The endometrial stripe is thickened measuring 1.3 cm and appears slightly inhomogeneous. Follow-up imaging is recommended. 2. Hypoechoic subserosal dorsal lower uterine fibroid measuring 1.9 x 1.7 x 1.9 cm. 3. Normal blood flow to both ovaries. Problems: Consultation Date/Type/Reason Admit Date/Time Nov 14, 2016 at 20:50 Type of Consultation: Oncology/Hematology Reason for Consultation Iron deficiency anemia, significant weight loss 24 HR Interval Summary Free Text/Dictation The patient states that she had emesis with broccoli earlier, but with nausea medication was able to eat a potato with abdominal pain and nausea but no diarrhea. She denies vaginal bleeding at this time. Exam/Review of Systems Vital Signs Vitals Vital Signs Date Time Temp Pulse Resp B/P Pulse Ox O2 Delivery O2 Flow Rate FiO2 11/17/16 07:37 98.9 78 20 102/54 98 11/14/16 22:00 Room Air Intake and Output 11/16/16 11/16/16 11/17/16 15:00 23:00 07:00 Intake Total 1000 ml 800 ml 910 ml Output Total 1100 ml Balance 1000 ml -300 ml 910 ml Exam GENERAL: Shows moderately built female who shows evidence of recent weight loss. She is afebrile. HEENT, HEART, LUNGS: Normal. BREASTS: Without any lumps. ABDOMEN: Shows no hepatosplenomegaly. EXTREMITIES: Showed no edema, clubbing, or cyanosis. CENTRAL NERVOUS SYSTEM: No focal defects. Results Result Diagram: 11/17/16 0505 11/17/16 0505 Results 24 hrs Laboratory Tests Test 11/16/16 21:05 11/17/16 05:05 11/17/16 06:19 Stool Occult Blood NEGATIVE White Blood Count 5.2 Red Blood Count 3.83 L Hemoglobin 8.8 L Hematocrit 28.8 L Mean Corpuscular Volume 75.2 L Mean Corpuscular Hemoglobin 23.0 L Mean Corpuscular Hemoglobin Concent 30.6 L Red Cell Distribution Width 16.5 H Platelet Count 200 Mean Platelet Volume 12.9 H Neutrophils % 61.1 Lymphocytes % 22.3 Monocytes % 12.0 H Eosinophils % 3.4 Basophils % 0.6 Nucleated Red Blood Cells % 0.0 Neutrophils # 3.2 Lymphocytes # 1.2 Monocytes # 0.6 Eosinophils # 0.2 Basophils # 0.0 Nucleated Red Blood Cells # 0.0 Sodium Level 140 Potassium Level 3.4 L Chloride Level 106 Carbon Dioxide Level 28 Anion Gap 9 Blood Urea Nitrogen 7 Creatinine 0.66 Glucose Level 84 Calcium Level 8.5 Lab Scanned Report BLOOD TRANSFUSION Medications Medications Current Medications Potassium Chloride/Dextrose/ Sod Cl (D5-1/2ns + KCl 20 Meq) 1,000 ml @ 100 mls/ hr Q10H IV Last administered on 11/17/16t 08:07; Admin Dose 100 MLS/HR; Start 11/14/16 at 23:56 Ondansetron HCl (Zofran Inj) 4 mg Q6H PRN IV NAUSEA AND/OR VOMITING; Start at 00:00 Acetaminophen (Tylenol Tab) 650 mg Q6H PRN PO PAIN LEVEL 1-3 OR FEVER; Start at 00:00 Acetaminophen/ Hydrocodone Bitart ([place] (5/325)) 1 tab Q6H PRN PO MODERATE PAIN LEVEL 4-6; Start 11/15/16 at 00:00 Morphine Sulfate (morphine) 2 mg Q4H PRN IV SEVERE PAIN LEVEL 7-10; Start 11/15 at 00:00 Docusate Sodium (Colace) 100 mg Q12H PRN PO CONSTIPATION; Start 11/15/16 at 00: 00 Zolpidem Tartrate (Ambien) 5 mg QHS PRN PO SLEEP; Start 11/15/16 at 00:00 Pantoprazole (Protonix Iv) 40 mg DAILY@06 IV Last administered on 11/17/16 06: 09; Admin Dose 40 MG; Start 11/15/16 at 06:00 Simethicone (Mylicon) 80 mg Q6 PO Last administered on 11/17/16 06:08; Admin Dose 80 MG; Start 11/15/16 at 00:00 Metoclopramide HCl (Reglan) 5 mg Q6H PRN IV NAUSEA; Start 11/15/16 at 00:00 ALFREDO WYNN MD Nov 17, 2016 09:06
--- NOTE | 2016-11-17 10:20 | PN ---
Date/Time of Note Date/Time of Note DATE: 11/17/16 TIME: 10:14 Assessment/Plan VTE Prophylaxis VTE Prophylaxis Intervention: ambulation Lines/Catheters [facility] Saline Lock Urinary Cath still in place: No Assessment/Plan Assessment/Plan a/p 1. gi: patient with significant weight loss, TSH is normal, CT c/a/p does not show any evidence of solid malignancy. consider malabsorption a likely possiblity in light of joint pain and diarrhea. check fecal fat. discuss with GI (b) fatty liver 2. iron deficiency anemia, presumed related to menorrhagia, will fdefer further work up/treatment to outpatient gynecology referral (b) replete Fe 3. DM< possibly with gastroparesis? will obtain gastric emptying 4. joint pain, check xrays of hips, hands do not revelai any paris arthritis. RA is minimally postitiv, await TORO Subjective 24 Hr Interval Summary Free Text/Dictation no new complaints briefly HPI was reviewed: pertinent for these findings a) significant weight loss, patient claims 90lbs since jan b) severe sob which has prevented from working for 4 months c) hip and back pain which interfere with adls, some other joints may be less severely affected Exam/Review of Systems Vital Signs Vitals Vital Signs Date Time Temp Pulse Resp B/P Pulse Ox O2 Delivery O2 Flow Rate FiO2 11/17/16 07:37 98.9 78 20 102/54 98 11/14/16 22:00 Room Air Intake and Output 11/16/16 11/16/16 11/17/16 15:00 23:00 07:00 Intake Total 1000 ml 800 ml 910 ml Output Total 1100 ml Balance 1000 ml -300 ml 910 ml Exam Constitutional: alert Head: normocephalic Neck: non-tender, supple Respiratory: clear to auscultation Cardiovascular: regular rate and rhythm Gastrointestinal: non-tender, other (there is no exam evidence of rapid weight loss), soft Musculoskeletal: nl extremities to inspection Results Result Diagram: 11/17/16 0505 11/17/16 0505 Results 24 hrs Laboratory Tests Test 11/16/16 21:05 11/17/16 05:05 11/17/16 06:19 Stool Occult Blood NEGATIVE White Blood Count 5.2 Red Blood Count 3.83 L Hemoglobin 8.8 L Hematocrit 28.8 L Mean Corpuscular Volume 75.2 L Mean Corpuscular Hemoglobin 23.0 L Mean Corpuscular Hemoglobin Concent 30.6 L Red Cell Distribution Width 16.5 H Platelet Count 200 Mean Platelet Volume 12.9 H Neutrophils % 61.1 Lymphocytes % 22.3 Monocytes % 12.0 H Eosinophils % 3.4 Basophils % 0.6 Nucleated Red Blood Cells % 0.0 Neutrophils # 3.2 Lymphocytes # 1.2 Monocytes # 0.6 Eosinophils # 0.2 Basophils # 0.0 Nucleated Red Blood Cells # 0.0 Sodium Level 140 Potassium Level 3.4 L Chloride Level 106 Carbon Dioxide Level 28 Anion Gap 9 Blood Urea Nitrogen 7 Creatinine 0.66 Glucose Level 84 Calcium Level 8.5 Lab Scanned Report BLOOD TRANSFUSION Medications Medications Current Medications Potassium Chloride/Dextrose/ Sod Cl (D5-1/2ns + KCl 20 Meq) 1,000 ml @ 100 mls/ hr Q10H IV Last administered on 11/17/16 08:07; Admin Dose 100 MLS/HR; Start 11/14/16 at 23:56 Ondansetron HCl (Zofran Inj) 4 mg Q6H PRN IV NAUSEA AND/OR VOMITING; Start at 00:00 Acetaminophen (Tylenol Tab) 650 mg Q6H PRN PO PAIN LEVEL 1-3 OR FEVER; Start at 00:00 Acetaminophen/ Hydrocodone Bitart ([place] (5/325)) 1 tab Q6H PRN PO MODERATE PAIN LEVEL 4-6; Start 11/15/16 at 00:00 Morphine Sulfate (morphine) 2 mg Q4H PRN IV SEVERE PAIN LEVEL 7-10; Start 11/15 at 00:00 Docusate Sodium (Colace) 100 mg Q12H PRN PO CONSTIPATION; Start 11/15/16 at 00: 00 Zolpidem Tartrate (Ambien) 5 mg QHS PRN PO SLEEP; Start 11/15/16 at 00:00 Pantoprazole (Protonix Iv) 40 mg DAILY@06 IV Last administered on 11/17/16 06: 09; Admin Dose 40 MG; Start 11/15/16 at 06:00 Simethicone (Mylicon) 80 mg Q6 PO Last administered on 11/17/16 06:08; Admin Dose 80 MG; Start 11/15/16 at 00:00 Metoclopramide HCl (Reglan) 5 mg Q6H PRN IV NAUSEA; Start 11/15/16 at 00:00 ELEANOR TELLES MD Nov 17, 2016 10:19
--- NOTE | 2016-11-17 13:21 | RADRPT ---
PROCEDURE: MRI Brain without contrast. CLINICAL INDICATION: Left-sided numbness TECHNIQUE: Multiplanar MRI of the brain without contrast was performed on a 3.0 T scanner with the following sequences obtained: T1-weighted, T2-weighted/FLAIR, diffusion weighted (with ADC map), GR E. COMPARISON: None available FINDINGS: No acute/recent ischemic infarction or intracranial hemorrhage is identified. No extra-axial fluid collection is seen. There is no mass effect. No midline shift is identified. The ventricles and sulci are within normal limits for size and configuration. Minimal areas of increased T2 / FLAIR signal intensity are identified in the periventricular - deep white matter, nonspecific but likely related to chronic small vessel ischemic changes. There is a s mall focus of decreased T1-weighted - T2-weighted signal intensity, measuring up to approximately 7 mm in the peripheral posterior right temporal lobe with associated susceptibility. Minimal adjacent increased T2-weighted FLAIR signal intensity may reflect gliosis. A couple of additional punctate foci of susceptibility are also identified in the peripheral parasagittal left parietal lobe and rig ht frontal lobe. These may reflect calcifications. Flow voids are identified in the proximal intracranial arteries and dural sinuses suggesting patency . There is scattered mild to moderate paranasal sinus mucosal thickening with secretions seen in the r ight sphenoid sinus and probable right maxillary sinus mucous retention cyst. Mild right mastoid ai r cell opacification is seen IMPRESSION: 1. No acute intracranial pathology identified. 2. Small focal signal abnormality in the right temporal lobe, with additional punctate signal abnor mality in the left parietal and right frontal lobe described above which may reflect calcifications which could be post infectious - inflammatory such as sequela of neurocysticercosis. Foci of chroni c hemorrhage are not excluded. Correlation with CT is suggested. 3. Minimal chronic small vessel ischemic changes. RPTAT: VV .Gurpreet Ndiaye MD, Date Time Electronically viewed and signed by .Gurpreet Ndiaye MD, on 11/17/2016 13:20 .O/
[2016-11-17 13:41] LABS: ANA SCREEN NEGATIVE (NEGATIVE)
[2016-11-17 20:13] VITALS: BP 111/57; RESP 18
[2016-11-18 05:32] LABS: ADD SCAN DIFF NO
[2016-11-18 05:42] LABS: ABNORMAL IP MESSAGE 1; BASOPHILS % 0.4 % (0.0-2.0); EOSINOPHILS # 0.2 10^3/ul (0.0-0.5); EOSINOPHILS % 3.9 % (0.0-7.0); HEMATOCRIT 30.1 % (37.0-47.0); HEMOGLOBIN 9.1 g/dl (12.0-16.0); LYMPHOCYTES # 1.4 10^3/ul (0.8-2.9); LYMPHOCYTES % 26.6 % (15.0-51.0); MEAN CORPUSCULAR HEMOGLOBIN 22.9 pg (29.0-33.0); MEAN CORPUSCULAR HGB CONC 30.2 g/dl (32.0-37.0); MEAN CORPUSCULAR VOLUME 75.8 fl (82.0-101.0); MEAN PLATELET VOLUME 12.9 fl (7.4-10.4); MONOCYTE # 0.7 10^3/ul (0.3-0.9); MONOCYTES % 12.8 % (0.0-11.0); NEUTROPHIL # 2.8 10^3/ul (1.6-7.5); NEUTROPHILS % 55.7 % (39.0-77.0); PLATELET COUNT 201 10^3/UL (140-415); RED BLOOD COUNT 3.97 10^6/ul (4.20-5.40); RED CELL DISTRIBUTION WIDTH 16.9 % (11.5-14.5); WHITE BLOOD COUNT 5.1 10^3/ul (4.8-10.8)
[2016-11-18] MEDS: PANTOPRAZOLE 40 MG INJ IV SCH (05:43)
[2016-11-18 06:02] LABS: ALBUMIN/GLOBULIN RATIO 1.66; BILIRUBIN,INDIRECT 0.2 mg/dl (0-1.1); BILIRUBIN,TOTAL 0.2 mg/dl (0.2-1.3); CALCIUM 8.7 mg/dl (8.4-10.2); CREATININE 0.63 mg/dl (0.44-1.00); POTASSIUM 3.9 mmol/L (3.5-5.1); TOTAL PROTEIN 6.4 g/dl (6.1-8.1)
[2016-11-18] MEDS: D5W-0.45 NACL + KCL 20 MEQ 1,000 ML IV SCH ×3 (06:06→21:12)
[2016-11-18 07:35] VITALS: BP 111/57; RESP 20
[2016-11-18] MEDS ORDERED: BARIUM SULF 2% 450 ML BTL (BERRY SMOOTHIE) PO ONE (08:00)
--- NOTE | 2016-11-18 09:19 | PN ---
Date/Time of Note Date/Time of Note DATE: 11/18/16 TIME: 09:17 Assessment/Plan VTE Prophylaxis VTE Prophylaxis Intervention: ambulation Lines/Catheters IV C[facility] Type (from [facility] Saline Lock Urinary Cath still in place: No Assessment/Plan Assessment/Plan 1.. gi: patient with significant weight loss, TSH is normal, CT c/a/p does not show any evidence of solid malignancy. consider malabsorption a likely possiblity in light of joint pain and diarrhea. check fecal fat. discuss with GI; will obtain ct enterographgy, check for chronic cholecystitis?? (b) fatty liver 2. iron deficiency anemia, presumed related to menorrhagia, will fdefer further work up/treatment to outpatient gynecology referral (b) replete Fe 3. DM< possibly with gastroparesis? gastric emptying later today 4. joint pain, await xrays of hips, hands do not revelai any paris arthritis. RA is minimally postitiv, wagner neg Subjective 24 Hr Interval Summary Free Text/Dictation still some abdo pain and nausea, tolerated some PO yesterday but then had nausea and epigastric pain Exam/Review of Systems Vital Signs Vitals Vital Signs Date Time Temp Pulse Resp B/P Pulse Ox O2 Delivery O2 Flow Rate FiO2 11/18/16 07:35 98.3 73 20 111/57 100 11/14/16 22:00 Room Air Intake and Output 11/17/16 11/17/16 11/18/16 15:00 23:00 07:00 Intake Total 1000 ml 1480 ml 1000 ml Output Total 2300 ml 860 ml Balance 1000 ml -820 ml 140 ml Exam Constitutional: alert Respiratory: clear to auscultation Cardiovascular: regular rate and rhythm Gastrointestinal: soft (tender RUQ) Results Result Diagram: 11/18/16 0511/18/16 0520 Results 24 hrs Laboratory Tests Test 11/18/16 05:20 White Blood Count 5.1 Red Blood Count 3.97 L Hemoglobin 9.1 L Hematocrit 30.1 L Mean Corpuscular Volume 75.8 L Mean Corpuscular Hemoglobin 22.9 L Mean Corpuscular Hemoglobin Concent 30.2 L Red Cell Distribution Width 16.9 H Platelet Count 201 Mean Platelet Volume 12.9 H Neutrophils % 55.7 Lymphocytes % 26.6 Monocytes % 12.8 H Eosinophils % 3.9 Basophils % 0.4 Nucleated Red Blood Cells % 0.0 Neutrophils # 2.8 Lymphocytes # 1.4 Monocytes # 0.7 Eosinophils # 0.2 Basophils # 0.0 Nucleated Red Blood Cells # 0.0 Sodium Level 140 Potassium Level 3.9 Chloride Level 107 Carbon Dioxide Level 25 Anion Gap 12 Blood Urea Nitrogen 7 Creatinine 0.63 Glucose Level 79 Calcium Level 8.7 Total Bilirubin 0.2 Direct Bilirubin 0.00 Indirect Bilirubin 0.2 Aspartate Amino Transf (AST/SGOT) 20 Alanine Aminotransferase (ALT/SGPT) 34 Alkaline Phosphatase 36 L Total Protein 6.4 Albumin 4.0 Globulin 2.40 Albumin/Globulin Ratio 1.66 Medications Medications Current Medications Potassium Chloride/Dextrose/ Sod Cl (D5-1/2ns + KCl 20 Meq) 1,000 ml @ 100 mls/ hr Q10H IV Last administered on 11/18/16 06:06; Admin Dose 100 MLS/HR; Start 11/14/16 at 23:56 Ondansetron HCl (Zofran Inj) 4 mg Q6H PRN IV NAUSEA AND/OR VOMITING; Start at 00:00 Acetaminophen (Tylenol Tab) 650 mg Q6H PRN PO PAIN LEVEL 1-3 OR FEVER; Start at 00:00 Acetaminophen/ Hydrocodone Bitart ([place] (5/325)) 1 tab Q6H PRN PO MODERATE PAIN LEVEL 4-6; Start 11/15/16 at 00:00 Morphine Sulfate (morphine) 2 mg Q4H PRN IV SEVERE PAIN LEVEL 7-10; Start 11/15 at 00:00 Docusate Sodium (Colace) 100 mg Q12H PRN PO CONSTIPATION; Start 11/15/16 at 00: 00 Zolpidem Tartrate (Ambien) 5 mg QHS PRN PO SLEEP; Start 11/15/16 at 00:00 Pantoprazole (Protonix Iv) 40 mg DAILY@06 IV Last administered on 11/18/16 05: 43; Admin Dose 40 MG; Start 11/15/16 at 06:00 Simethicone (Mylicon) 80 mg Q6 PO Last administered on 11/18/16 05:43; Admin Dose 80 MG; Start 11/15/16 at 00:00 Metoclopramide HCl (Reglan) 5 mg Q6H PRN IV NAUSEA; Start 11/15/16 at 00:00 ELEANOR TELLES MD Nov 18, 2016 09:19
--- NOTE | 2016-11-18 09:50 | CONS ---
Date/Time of Note Date/Time of Note DATE: 11/18/16 TIME: 09:49 Assessment/Plan Assessment/Plan Chief Complaint/Hosp Course 41 year old female with rapid weight loss on unknown origin, abdominal pain, and recurrent emesis: improving 1. Severe iron deficiency anemia (iron 25, TIBC 439, %sat 6, ferritin 4.3), most likely secondary to menorrhagia, thought dysfunctional uterine bleeding from fibroids. Hgb improved after one unit pRBC on 11/15/16. LDH normal at 517 , Vitamin B12, folate, TSH within normal limits, FOBT negative. Haptoglobin pending. Follow-up results of endometrial biopsy performed as outpatient. 2. Anorexia, vomiting, and severe weight loss, status post esophagogastroduodenoscopy and colonoscopy on 10/23/2016. 3. History of Helicobacter pylori disease. 4. 80 pounds weight loss of unclear origin. CT scan fairly unremarkable. RF 1 :1 but fairly low titer. TORO negative. PLAN AND DISCUSSION: This patient with history of diabetes now has 80 pound weight loss and also abdominal pain and poor appetite. Her GI workup recently, including colonoscopy and EGD, were unremarkable except for H. pylori. She needs treatment for that. Her CT of the chest, abdomen, and pelvis with IV contrast is also unremarkable. She is getting IV iron, which we should continue. 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 We should probably get a repeat GI evaluation, especially to treat her H. pylori disease, and to look for other etiologies for weight loss. Follow-up gastric emptying study. CT CAP showed No lung mass, pneumonia or adenopathy. Old granulomatous disease. No abdominal mass or adenopathy. Minimal nonspecific periportal edema. No CT evidence for appendicitis. Trace pelvic free fluid. Pelvic US showed 1. The endometrial stripe is thickened measuring 1.3 cm and appears slightly inhomogeneous. Follow-up imaging is recommended. 2. Hypoechoic subserosal dorsal lower uterine fibroid measuring 1.9 x 1.7 x 1.9 cm. 3. Normal blood flow to both ovaries. Problems: Consultation Date/Type/Reason Admit Date/Time Nov 14, 2016 at 20:50 Type of Consultation: Oncology/Hematology 24 HR Interval Summary Free Text/Dictation Patient down at nuclear medicine for gastric emptying study. No emesis last night or today per nurse but no appetite. Exam/Review of Systems Vital Signs Vitals Vital Signs Date Time Temp Pulse Resp B/P Pulse Ox O2 Delivery O2 Flow Rate FiO2 11/18/16 07:35 98.3 73 20 111/57 100 11/14/16 22:00 Room Air Intake and Output 11/17/16 11/17/16 11/18/16 15:00 23:00 07:00 Intake Total 1000 ml 1480 ml 1000 ml Output Total 2300 ml 860 ml Balance 1000 ml -820 ml 140 ml Results Result Diagram: 11/18/16 0520 11/18/16 0520 Results 24 hrs Laboratory Tests Test 11/18/16 05:20 White Blood Count 5.1 Red Blood Count 3.97 L Hemoglobin 9.1 L Hematocrit 30.1 L Mean Corpuscular Volume 75.8 L Mean Corpuscular Hemoglobin 22.9 L Mean Corpuscular Hemoglobin Concent 30.2 L Red Cell Distribution Width 16.9 H Platelet Count 201 Mean Platelet Volume 12.9 H Neutrophils % 55.7 Lymphocytes % 26.6 Monocytes % 12.8 H Eosinophils % 3.9 Basophils % 0.4 Nucleated Red Blood Cells % 0.0 Neutrophils # 2.8 Lymphocytes # 1.4 Monocytes # 0.7 Eosinophils # 0.2 Basophils # 0.0 Nucleated Red Blood Cells # 0.0 Erythrocyte Sedimentation Rate 25 H Sodium Level 140 Potassium Level 3.9 Chloride Level 107 Carbon Dioxide Level 25 Anion Gap 12 Blood Urea Nitrogen 7 Creatinine 0.63 Glucose Level 79 Calcium Level 8.7 Total Bilirubin 0.2 Direct Bilirubin 0.00 Indirect Bilirubin 0.2 Aspartate Amino Transf (AST/SGOT) 20 Alanine Aminotransferase (ALT/SGPT) 34 Alkaline Phosphatase 36 L Total Protein 6.4 Albumin 4.0 Globulin 2.40 Albumin/Globulin Ratio 1.66 Medications Medications Current Medications Potassium Chloride/Dextrose/ Sod Cl (D5-1/2ns + KCl 20 Meq) 1,000 ml @ 100 mls/ hr Q10H IV Last administered on 11/18/16t 06:06; Admin Dose 100 MLS/HR; Start 11/14/16 at 23:56 Ondansetron HCl (Zofran Inj) 4 mg Q6H PRN IV NAUSEA AND/OR VOMITING; Start at 00:00 Acetaminophen (Tylenol Tab) 650 mg Q6H PRN PO PAIN LEVEL 1-3 OR FEVER; Start at 00:00 Acetaminophen/ Hydrocodone Bitart ([place] (5/325)) 1 tab Q6H PRN PO MODERATE PAIN LEVEL 4-6; Start 11/15/16 at 00:00 Morphine Sulfate (morphine) 2 mg Q4H PRN IV SEVERE PAIN LEVEL 7-10; Start 11/15 at 00:00 Docusate Sodium (Colace) 100 mg Q12H PRN PO CONSTIPATION; Start 11/15/16 at 00: 00 Zolpidem Tartrate (Ambien) 5 mg QHS PRN PO SLEEP; Start 11/15/16 at 00:00 Pantoprazole (Protonix Iv) 40 mg DAILY@06 IV Last administered on 11/18/16 05: 43; Admin Dose 40 MG; Start 11/15/16 at 06:00 Simethicone (Mylicon) 80 mg Q6 PO Last administered on 11/18/16 05:43; Admin Dose 80 MG; Start 11/15/16 at 00:00 Metoclopramide HCl 5 mg 5 mg Q6H PRN IV NAUSEA; Start 11/15/16 at 00:00 Ferric Sodium Gluconate Complex/ Sodium Chloride (Ferrlecit/NS) 110 ml @ 100 mls/hr Q24H IVPB ; Start 11/18/16 at 11:00; Stop 11/20/16 at 12:05 TOALFREDO MD Nov 18, 2016 09:50
[2016-11-18] MEDS: SOD FERRIC GLUC COMPLX 125 MG in SOD CHLORIDE 0.9% 100 ML IVPB SCH (13:17)
--- NOTE | 2016-11-18 14:08 | RADRPT ---
PROCEDURE: US Abdomen and Retroperitoneum. CLINICAL INDICATION: Abdominal pain TECHNIQUE: Multiple real-time longitudinal and transverse images were acquired of the patient's ab domen and retroperitoneum utilizing a curved array transducer. COMPARISON: Correlation with CT from the same day. FINDINGS: The liver is normal in size and echogenicity without focal mass or intrahepatic biliary dilatation. Normal hepatopetal flow is seen within the main portal vein. The gallbladder is normal. There is no pericholecystic fluid or gallbladder wall thickening or gallstones. No intra or extrahepatic biliar y dilatation is seen. The common bile duct measures 4.9 mm in maximal dimension. The visualized por tions of the pancreas are unremarkable with obscuration of the tail of the pancreas. The spleen is normal in size and homogeneous in echogenicity. No free fluid is identified. The right kidney measures 10.8 cm in length. The left kidney measures 10.2 cm in length. There i s normal echogenicity within the kidneys. There are no perinephric fluid collections. No hydroneph rosis, mass, or calculus is seen. The aorta and IVC are unremarkable. IMPRESSION: 1. Unremarkable abdominal and retroperitoneal ultrasound. RPTAT: BB .Tony Chavez MD, Date Time Electronically viewed and signed by .Tony Chavez MD, on 11/18/2016 14:08 .A/
--- NOTE | 2016-11-18 14:16 | PN ---
Date/Time of Note Date/Time of Note DATE: 11/18/16 TIME: 14:11 Assessment/Plan VTE Prophylaxis VTE Prophylaxis Intervention: ambulation Lines/Catheters IV C[facility]ter Type (from [facility] Saline Lock Urinary Cath still in place: No Assessment/Plan Assessment/Plan Assessment * Anemia chronic iron deficiency * Unexplained weight loss * Colitis by colonoscopy * History OF EGD/Colonoscopy last 10/2016 Plan * will await small bowel series result * start patient on mesalamine Subjective 24 Hr Interval Summary Free Text/Dictation * Course reviewed with RN * Patient seen and examined * awaiting small bowel follow through results * Will secure old EGD/colonoscopy records at our clinic * Per Dr Ribeiro mild colitis * mild abdominal pain ,no nausea or vomiting Exam/Review of Systems Vital Signs Vitals Vital Signs Date Time Temp Pulse Resp B/P Pulse Ox O2 Delivery O2 Flow Rate FiO2 11/18/16 07:35 98.3 73 20 111/57 100 11/14/16 22:00 Room Air Intake and Output 11/17/16 11/17/16 11/18/16 15:00 23:00 07:00 Intake Total 1000 ml 1480 ml 1000 ml Output Total 2300 ml 860 ml Balance 1000 ml -820 ml 140 ml Exam Constitutional: alert, oriented Psych: no complaints Head: normocephalic Eyes: nl conjunctiva Neck: non-tender, supple Respiratory: clear to auscultation, normal air movement Cardiovascular: nl pulses, regular rate and rhythm Gastrointestinal: bowel sounds, nl liver, spleen, non-tender, soft, No rebound or guarding, No tender Musculoskeletal: nl extremities to inspection, nl gait and stance Extremities: normal pulses Neurological: nl speech, nl strength Skin: nl turgor, rash or lesions Lymph: nl lymph nodes Results Result Diagram: 11/18/16 0511/18/16 0520 Results 24 hrs Laboratory Tests Test 11/18/16 05:20 White Blood Count 5.1 Red Blood Count 3.97 L Hemoglobin 9.1 L Hematocrit 30.1 L Mean Corpuscular Volume 75.8 L Mean Corpuscular Hemoglobin 22.9 L Mean Corpuscular Hemoglobin Concent 30.2 L Red Cell Distribution Width 16.9 H Platelet Count 201 Mean Platelet Volume 12.9 H Neutrophils % 55.7 Lymphocytes % 26.6 Monocytes % 12.8 H Eosinophils % 3.9 Basophils % 0.4 Nucleated Red Blood Cells % 0.0 Neutrophils # 2.8 Lymphocytes # 1.4 Monocytes # 0.7 Eosinophils # 0.2 Basophils # 0.0 Nucleated Red Blood Cells # 0.0 Erythrocyte Sedimentation Rate 25 H Sodium Level 140 Potassium Level 3.9 Chloride Level 107 Carbon Dioxide Level 25 Anion Gap 12 Blood Urea Nitrogen 7 Creatinine 0.63 Glucose Level 79 Calcium Level 8.7 Total Bilirubin 0.2 Direct Bilirubin 0.00 Indirect Bilirubin 0.2 Aspartate Amino Transf (AST/SGOT) 20 Alanine Aminotransferase (ALT/SGPT) 34 Alkaline Phosphatase 36 L Total Protein 6.4 Albumin 4.0 Globulin 2.40 Albumin/Globulin Ratio 1.66 Medications Medications Current Medications Potassium Chloride/Dextrose/ Sod Cl (D5-1/2ns + KCl 20 Meq) 1,000 ml @ 100 mls/ hr Q10H IV Last administered on 11/18/16 06:06; Admin Dose 100 MLS/HR; Start 11/14/16 at 23:56 Ondansetron HCl (Zofran Inj) 4 mg Q6H PRN IV NAUSEA AND/OR VOMITING; Start at 00:00 Acetaminophen (Tylenol Tab) 650 mg Q6H PRN PO PAIN LEVEL 1-3 OR FEVER; Start at 00:00 Acetaminophen/ Hydrocodone Bitart ([place] (5/325)) 1 tab Q6H PRN PO MODERATE PAIN LEVEL 4-6; Start 11/15/16 at 00:00 Morphine Sulfate (morphine) 2 mg Q4H PRN IV SEVERE PAIN LEVEL 7-10; Start 11/15 at 00:00 Docusate Sodium (Colace) 100 mg Q12H PRN PO CONSTIPATION; Start 11/15/16 at 00: 00 Zolpidem Tartrate (Ambien) 5 mg QHS PRN PO SLEEP; Start 11/15/16 at 00:00 Pantoprazole (Protonix Iv) 40 mg DAILY@06 IV Last administered on 11/18/16 05: 43; Admin Dose 40 MG; Start 11/15/16 at 06:00 Simethicone (Mylicon) 80 mg Q6 PO Last administered on 11/18/16 13:17; Admin Dose 80 MG; Start 11/15/16 at 00:00 Metoclopramide HCl 5 mg 5 mg Q6H PRN IV NAUSEA; Start 11/15/16 at 00:00 Ferric Sodium Gluconate Complex/ Sodium Chloride (Ferrlecit/NS) 110 ml @ 100 mls/hr Q24H IVPB Last administered on 11/18/16t 13:17; Admin Dose 100 MLS/HR; Start 11/18/16 at 11:00; Stop 11/20/16 at 12:05 JED BAKER NP Nov 18, 2016 14:16
--- NOTE | 2016-11-18 14:19 | RADRPT ---
PROCEDURE: CT Abdomen and Pelvis without contrast. CLINICAL INDICATION: Abdominal pain. TECHNIQUE: CT scan of the abdomen and pelvis without contrast was performed on a multidetector hig h-resolution CT scanner. The patient was scanned without intravenous contrast. Coronal and sagittal reformatted images were obtained from the axial source images. Images were reviewed on a high-resol [employer] PACS workstation. One or more of the following dose reduction techniques were used: Automated exposure control, adjustment of the mA and/or kV according to patient size, use of iterative recon struction technique. The total exam CTDI equals 5.1 mGy and the total exam DLP equals 270.43 mGy-cm . COMPARISON: CT from 11/15/2016 FINDINGS: CT abdomen: There is new trace right pleural fluid. Otherwise, lung bases are clear. The heart size is normal, without pericardial thickening or effusion. The liver is normal in size and density without focal mass or intrahepatic biliary dilatation. The spleen is normal in size and homogeneous in density. The stomach is grossly unremarkable. The panc reas as visualized is normal. The gallbladder and biliary tree are unremarkable and there is no bobbi dence for biliary dilatation. The adrenal glands are symmetric and normal. The kidneys are symmetr ically unremarkable as well. No renal calculus or obstructive uropathy or mass lesion is seen. The aorta is of normal caliber. There is no retroperitoneal lymphadenopathy. The eryn hepatis reg ion is clear. The small bowel and mesentery, as visualized, are unremarkable. CT pelvis: The small bowel loops situated within the pelvis are unremarkable. The pelvic organs are normal. T he pelvic sidewalls and inguinal regions are clear. The sigmoid colon and rectum are unremarkable. The appendix is normal. No mass, lymphadenopathy, or free fluid is seen. No acute inflammation is s een. The surrounding osseous structures are unremarkable. No osteolytic or osteoblastic lesion is detec scot. IMPRESSION: No abdominal or pelvic acute inflammatory process, mass, or lymphadenopathy. RPTAT: JJ .Tony Chavez MD, MD Date Time Electronically viewed and signed by .Tony Chavez MD, MD on 11/18/2016 14:19 .A/
--- NOTE | 2016-11-18 15:20 | RADRPT ---
PROCEDURE: Gastric emptying scan CLINICAL INDICATION: 41 -year-old patient with abdominal pain, nausea and vomiting. TECHNIQUE: Following the oral administration of 1.1 mCi of Tc-99m sulfur colloid, labeled to a rosibel id meal, gastric emptying study was obtained up to 90 minutes post administration of the radiopharma ceutical. COMPARISON: No prior studies. FINDINGS: The stomach is well visualized. The small intestines are identified. There is evidence of normal gastric emptying rate from the start of the study with calculated T1/2 t roosevelt of 78 minutes (normal range is 30 - 90 minutes). There is no evidence of increased activity in the chest to suggest the presence of gastroesophageal reflux. IMPRESSION: Normal gastric emptying rate . RPTAT: HH .Smitha Villareal MD, Date Time Electronically viewed and signed by .Smitha Villareal MD, MD on 11/18/2016 15:20 .L/
[2016-11-18] MEDS: MESALAMINE (EC) 400 MG CAP PO SCH ×2 (18:42→21:08)
--- NOTE | 2016-11-18 19:03 | RADRPT ---
PROCEDURE: XR Hip. CLINICAL INDICATION: Hip pain. TECHNIQUE: AP and frog lateral views of the right hip were performed. COMPARISON: CT abdomen and pelvis dated today, earlier in the day. FINDINGS: There is normal mineralization and alignment. No fracture or osseous lesion is identified. There are normal joints without evidence of arthritis or effusion. Mild to moderate degenerative changes in t he sacroiliac joint. Retained oral contrast material in the colon. The soft tissues are unremarkab le. IMPRESSION: Unremarkable right hip. RPTAT: [facility] Physician Deric Date Time Electronically viewed and signed by Ciera Gilbert Physician on 11/18/2016 19:03 RS/
--- NOTE | 2016-11-18 19:03 | RADRPT ---
PROCEDURE: XR left Hip. CLINICAL INDICATION: Left hip pain TECHNIQUE: AP and frog lateral views of the left hip were performed. COMPARISON: None. FINDINGS: There is normal mineralization and alignment. No fracture or osseous lesion is identified. There are normal joints without evidence of arthritis or effusion. Mild to moderate symphysis pubis degenerat ion. The soft tissues are unremarkable. Contrast seen within the colon. IMPRESSION: 1. No acute osseous abnormality. RPTAT: HH .Praveen Jansen MD, Date Time Electronically viewed and signed by .Praveen Jansen MD, MD on 11/18/2016 19:03 .d/
[2016-11-18 20:14] VITALS: BP 113/58; RESP 18
[2016-11-19] MEDS: D5W-0.45 NACL + KCL 20 MEQ 1,000 ML IV SCH ×3 (03:56→13:56)
[2016-11-19] MEDS: PANTOPRAZOLE 40 MG INJ IV SCH (06:05)
[2016-11-19 06:06] LABS: ADD SCAN DIFF NO
[2016-11-19 06:25] LABS: ABNORMAL IP MESSAGE 1; BASOPHILS % 0.4 % (0.0-2.0); EOSINOPHILS # 0.2 10^3/ul (0.0-0.5); EOSINOPHILS % 3.2 % (0.0-7.0); HEMATOCRIT 29.8 % (37.0-47.0); HEMOGLOBIN 9.1 g/dl (12.0-16.0); LYMPHOCYTES # 1.5 10^3/ul (0.8-2.9); LYMPHOCYTES % 26.5 % (15.0-51.0); MEAN CORPUSCULAR HEMOGLOBIN 23.3 pg (29.0-33.0); MEAN CORPUSCULAR HGB CONC 30.5 g/dl (32.0-37.0); MEAN CORPUSCULAR VOLUME 76.2 fl (82.0-101.0); MEAN PLATELET VOLUME 12.5 fl (7.4-10.4); MONOCYTE # 0.6 10^3/ul (0.3-0.9); MONOCYTES % 10.2 % (0.0-11.0); NEUTROPHIL # 3.3 10^3/ul (1.6-7.5); NEUTROPHILS % 59.2 % (39.0-77.0); PLATELET COUNT 184 10^3/UL (140-415); RED BLOOD COUNT 3.91 10^6/ul (4.20-5.40); WHITE BLOOD COUNT 5.6 10^3/ul (4.8-10.8)
[2016-11-19 06:52] LABS: ALBUMIN 3.8 g/dl (3.3-4.9); ALBUMIN/GLOBULIN RATIO 1.4; BILIRUBIN,INDIRECT 0.2 mg/dl (0-1.1); BILIRUBIN,TOTAL 0.2 mg/dl (0.2-1.3); CREATININE 0.55 mg/dl (0.44-1.00); POTASSIUM 3.6 mmol/L (3.5-5.1); TOTAL PROTEIN 6.5 g/dl (6.1-8.1)
[2016-11-19 08:11] VITALS: BP 110/51; RESP 18
[2016-11-19] MEDS: MESALAMINE (EC) 400 MG CAP PO SCH ×2 (09:32→12:29)
--- NOTE | 2016-11-19 09:56 | CONS ---
Date/Time of Note Date/Time of Note DATE: 11/19/16 TIME: 09:54 Assessment/Plan Assessment/Plan Chief Complaint/Hosp Course 41 year old female with rapid weight loss on unknown origin, abdominal pain, and recurrent emesis: improving 1. Severe iron deficiency anemia (iron 25, TIBC 439, %sat 6, ferritin 4.3), most likely secondary to menorrhagia, thought dysfunctional uterine bleeding from fibroids. Hgb improved after one unit pRBC on 11/15/16. LDH normal at 517 , Vitamin B12, folate, TSH within normal limits, FOBT negative. Haptoglobin pending. Follow-up results of endometrial biopsy performed as outpatient. 2. Anorexia, vomiting, and severe weight loss, status post esophagogastroduodenoscopy and colonoscopy on 10/23/2016. 3. History of Helicobacter pylori disease. 4. 80 pounds weight loss of unclear origin. CT scan fairly unremarkable. RF 1 :1 but fairly low titer. TORO negative. PLAN AND DISCUSSION: This patient with history of diabetes now has 80 pound weight loss and also abdominal pain and poor appetite. Her GI workup recently, including colonoscopy and EGD, were unremarkable except for H. pylori. She needs treatment for that. Her CT of the chest, abdomen, and pelvis with IV contrast is also unremarkable. She is getting IV iron, which we can continue as an outpatient. Need to follow up on equip tech work-up for menorrhagia, follow up on results of what sounds like an endometrial biopsy. We should probably get a repeat GI evaluation, especially to treat her H. pylori disease, and to look for other etiologies for weight loss. Gastric emptying study showed normal gastric emptying rate. Appreciate GI recs. CT CAP showed No lung mass, pneumonia or adenopathy. Old granulomatous disease. No abdominal mass or adenopathy. Minimal nonspecific periportal edema. No CT evidence for appendicitis. Trace pelvic free fluid. Pelvic US showed 1. The endometrial stripe is thickened measuring 1.3 cm and appears slightly inhomogeneous. Follow-up imaging is recommended. 2. Hypoechoic subserosal dorsal lower uterine fibroid measuring 1.9 x 1.7 x 1.9 cm. 3. Normal blood flow to both ovaries. Problems: Consultation Date/Type/Reason Admit Date/Time Nov 14, 2016 at 20:50 Type of Consultation: Oncology/Hematology 24 HR Interval Summary Free Text/Dictation Patient endorses nausea but no vomiting. Exam/Review of Systems Vital Signs Vitals Vital Signs Date Time Temp Pulse Resp B/P Pulse Ox O2 Delivery O2 Flow Rate FiO2 11/19/16 08:11 98.7 65 18 110/51 100 Intake and Output 11/18/16 11/18/16 11/19/16 15:00 23:00 07:00 Intake Total 110 ml 1180 ml Output Total 2750 ml Balance 110 ml -1570 ml Exam GENERAL: Shows moderately built female who shows evidence of recent weight loss. She is afebrile. HEENT, HEART, LUNGS: Normal. BREASTS: Without any lumps. ABDOMEN: Shows no hepatosplenomegaly. EXTREMITIES: Showed no edema, clubbing, or cyanosis. CENTRAL NERVOUS SYSTEM: No focal defects. Results Result Diagram: 11/19/16 0530 11/19/16 0530 Results 24 hrs Laboratory Tests Test 11/19/16 05:30 White Blood Count 5.6 Red Blood Count 3.91 L Hemoglobin 9.1 L Hematocrit 29.8 L Mean Corpuscular Volume 76.2 L Mean Corpuscular Hemoglobin 23.3 L Mean Corpuscular Hemoglobin Concent 30.5 L Red Cell Distribution Width 18.0 H Platelet Count 184 Mean Platelet Volume 12.5 H Neutrophils % 59.2 Lymphocytes % 26.5 Monocytes % 10.2 Eosinophils % 3.2 Basophils % 0.4 Nucleated Red Blood Cells % 0.0 Neutrophils # 3.3 Lymphocytes # 1.5 Monocytes # 0.6 Eosinophils # 0.2 Basophils # 0.0 Nucleated Red Blood Cells # 0.0 Sodium Level 142 Potassium Level 3.6 Chloride Level 108 Carbon Dioxide Level 25 Anion Gap 13 Blood Urea Nitrogen 5 L Creatinine 0.55 Glucose Level 78 Calcium Level 9.0 Total Bilirubin 0.2 Direct Bilirubin 0.00 Indirect Bilirubin 0.2 Aspartate Amino Transf (AST/SGOT) 20 Alanine Aminotransferase (ALT/SGPT) 33 Alkaline Phosphatase 37 L Total Protein 6.5 Albumin 3.8 Globulin 2.70 Albumin/Globulin Ratio 1.40 Medications Medications Current Medications Potassium Chloride/Dextrose/ Sod Cl (D5-1/2ns + KCl 20 Meq) 1,000 ml @ 100 mls/ hr Q10H IV Last administered on 11/19/16t 06:14; Admin Dose 100 MLS/HR; Start 11/14/16 at 23:56 Ondansetron HCl (Zofran Inj) 4 mg Q6H PRN IV NAUSEA AND/OR VOMITING; Start at 00:00 Acetaminophen (Tylenol Tab) 650 mg Q6H PRN PO PAIN LEVEL 1-3 OR FEVER; Start at 00:00 Acetaminophen/ Hydrocodone Bitart ([place] (5/325)) 1 tab Q6H PRN PO MODERATE PAIN LEVEL 4-6; Start 11/15/16 at 00:00 Morphine Sulfate (morphine) 2 mg Q4H PRN IV SEVERE PAIN LEVEL 7-10; Start 11/15 at 00:00 Docusate Sodium (Colace) 100 mg Q12H PRN PO CONSTIPATION; Start 11/15/16 at 00: 00 Zolpidem Tartrate (Ambien) 5 mg QHS PRN PO SLEEP; Start 11/15/16 at 00:00 Pantoprazole (Protonix Iv) 40 mg DAILY@06 IV Last administered on 11/19/16 06: 05; Admin Dose 40 MG; Start 11/15/16 at 06:00 Simethicone (Mylicon) 80 mg Q6 PO Last administered on 11/19/16 06:05; Admin Dose 80 MG; Start 11/15/16 at 00:00 Metoclopramide HCl 5 mg 5 mg Q6H PRN IV NAUSEA; Start 11/15/16 at 00:00 Ferric Sodium Gluconate Complex/ Sodium Chloride (Ferrlecit/NS) 110 ml @ 100 mls/hr Q24H IVPB Last administered on 11/18/16 13:17; Admin Dose 100 MLS/HR; Start 11/18/16 at 11:00; Stop 11/20/16 at 12:05 Mesalamine (Delzicol Dr) 400 mg QID PO Last administered on 11/19/16 09:32; Admin Dose 400 MG; Start 11/18/16 at 17:00 ALFREDO WYNN MD Nov 19, 2016 09:55
--- NOTE | 2016-11-19 10:26 | PN ---
Date/Time of Note Date/Time of Note DATE: 11/19/16 TIME: 10:21 Assessment/Plan VTE Prophylaxis VTE Prophylaxis Intervention: ambulation Lines/Catheters IV Catheter Type (from Nrs): Peripheral IV Urinary Cath still in place: No Assessment/Plan Assessment/Plan 1. GI: weightloss, no clear etiology, normal thyroid, normal egd and colo, normal hida, normal CT x2-3 without evidence of solid malignancy, no evidence of chronic infection, no clear evidence of malabsorption will plan furhter observation (b) intermittant, nausea and vomiting, follow upwith gi (c) empirically started on mesalamine yest 2. total body pain, no clear etiology,monitor (b) mri brain normal 3. d/c home Subjective 24 Hr Interval Summary Free Text/Dictation no complaints [place] some of pureed ambulating Exam/Review of Systems Vital Signs Vitals Vital Signs Date Time Temp Pulse Resp B/P Pulse Ox O2 Delivery O2 Flow Rate FiO2 11/19/16 08:11 98.7 65 18 110/51 100 Intake and Output 11/18/16 11/18/16 11/19/16 15:00 23:00 07:00 Intake Total 110 ml 1180 ml Output Total 2750 ml Balance 110 ml -1570 ml Exam Constitutional: alert Respiratory: clear to auscultation, No crackles/rales Cardiovascular: regular rate and rhythm Gastrointestinal: ascites, soft Results Result Diagram: 11/19/16 0530 11/19/16 0530 Results 24 hrs Laboratory Tests Test 11/19/16 05:30 White Blood Count 5.6 Red Blood Count 3.91 L Hemoglobin 9.1 L Hematocrit 29.8 L Mean Corpuscular Volume 76.2 L Mean Corpuscular Hemoglobin 23.3 L Mean Corpuscular Hemoglobin Concent 30.5 L Red Cell Distribution Width 18.0 H Platelet Count 184 Mean Platelet Volume 12.5 H Neutrophils % 59.2 Lymphocytes % 26.5 Monocytes % 10.2 Eosinophils % 3.2 Basophils % 0.4 Nucleated Red Blood Cells % 0.0 Neutrophils # 3.3 Lymphocytes # 1.5 Monocytes # 0.6 Eosinophils # 0.2 Basophils # 0.0 Nucleated Red Blood Cells # 0.0 Sodium Level 142 Potassium Level 3.6 Chloride Level 108 Carbon Dioxide Level 25 Anion Gap 13 Blood Urea Nitrogen 5 L Creatinine 0.55 Glucose Level 78 Calcium Level 9.0 Total Bilirubin 0.2 Direct Bilirubin 0.00 Indirect Bilirubin 0.2 Aspartate Amino Transf (AST/SGOT) 20 Alanine Aminotransferase (ALT/SGPT) 33 Alkaline Phosphatase 37 L Total Protein 6.5 Albumin 3.8 Globulin 2.70 Albumin/Globulin Ratio 1.40 Medications Medications Current Medications Potassium Chloride/Dextrose/ Sod Cl (D5-1/2ns + KCl 20 Meq) 1,000 ml @ 100 mls/ hr Q10H IV Last administered on 11/19/16 06:14; Admin Dose 100 MLS/HR; Start 11/14/16 at 23:56 Ondansetron HCl (Zofran Inj) 4 mg Q6H PRN IV NAUSEA AND/OR VOMITING; Start at 00:00 Acetaminophen (Tylenol Tab) 650 mg Q6H PRN PO PAIN LEVEL 1-3 OR FEVER; Start at 00:00 Acetaminophen/ Hydrocodone Bitart ([place] (5/325)) 1 tab Q6H PRN PO MODERATE PAIN LEVEL 4-6; Start 11/15/16 at 00:00 Morphine Sulfate (morphine) 2 mg Q4H PRN IV SEVERE PAIN LEVEL 7-10; Start 11/15 at 00:00 Docusate Sodium (Colace) 100 mg Q12H PRN PO CONSTIPATION; Start 11/15/16 at 00: 00 Zolpidem Tartrate (Ambien) 5 mg QHS PRN PO SLEEP; Start 11/15/16 at 00:00 Pantoprazole (Protonix Iv) 40 mg DAILY@06 IV Last administered on 11/19/16 06: 05; Admin Dose 40 MG; Start 11/15/16 at 06:00 Simethicone (Mylicon) 80 mg Q6 PO Last administered on 11/19/16 06:05; Admin Dose 80 MG; Start 11/15/16 at 00:00 Metoclopramide HCl 5 mg 5 mg Q6H PRN IV NAUSEA; Start 11/15/16 at 00:00 Ferric Sodium Gluconate Complex/ Sodium Chloride (Ferrlecit/NS) 110 ml @ 100 mls/hr Q24H IVPB Last administered on 11/18/16 13:17; Admin Dose 100 MLS/HR; Start 11/18/16 at 11:00; Stop 11/20/16 at 12:05 Mesalamine (Delzicol Dr) 400 mg QID PO Last administered on 11/19/16t 09:32; Admin Dose 400 MG; Start 11/18/16 at 17:00 ELEANOR TELLES MD Nov 19, 2016 10:26
--- NOTE | 2016-11-19 10:28 | PDOCDIS ---
Discharge Instructions CONDITION Patient Condition: Good HOME CARE INSTRUCTIONS: Diet Instructions: RegularYour diet recommendation is: take any and all foods which are well tolerated, take plenty of liquids ACTIVITY: Activity Restrictions: No Restrictions FOLLOW UP/APPOINTMENTS Follow-up Plan 1. follow up with PCP 2. follow up with gynecology regarding anemia 3. follow up with ELEANOR Johnson MD Nov 19, 2016 10:28
[2016-11-19] MEDS ORDERED: PANT40TA3 PO (10:32)
[2016-11-19] MEDS ORDERED: ASA400 PO (10:32)
[2016-11-19] MEDS ORDERED: FERR325C PO (10:33)
--- NOTE | 2016-11-19 10:45 | DS ---
Date/Time of Note Date/Time of Note DATE: 11/19/16 TIME: 10:34 Discharge Summary Admission/Discharge Info Admit Date/Time Nov 14, 2016 at 20:50 Discharge Date/Time 11/19/16 Patient Condition: Fair Consults mandi Brown, tracee ribeiro Procedures mri brain - normal ct chest/abdo/pelvis - nomal, no evidence of malignancy wagner- neg RA - weakly positive egd (10/23/16 as outpatient) - numerous H pylori, no malignancy or ulcer colo (10/23/16 as outpatient) - focal lymphocyte infiltration, benign melanosis coli abdominal u.s x2 no evidence of gall bladder disease or biliary dilation HIDA 04/30/16 as outpatient: no evidence of cholecystitis, normal GB ejection fraction brain MRI: normal bilateral hip xray: normal, no evidence of arthritis pelvic u/s x 2: inhomogenous endometrial stripe, likely posterior subserosal fibroid, Hospital Course patient admitted to hospital with complaints of nausea, vomting, diarrhea, abdominal pain, total body adn especially hi[p pain, and significant weight loss. she underwent numerous investigations as summarized above, none of these was diagnostig she was observed in hospital, able to tolerate some PO and able to ambulate. she is discharged to home in stable condition, to continue her evaluation with her PCP, dr kecia angulo, and her lead cytogenetic technologist Dr Ribeiro. She is noted to have iron deficiency anemia, which is felt to be secondary to menorrhagia, and she will be referred to gynecology for this. suggestions for follow up care: 1. gynecology evalformenorrhagia and possibleendometrial abnormalities 2. consider capsule endoscopy for furth evaluation of small bowel pathology 3. consider esophagram for possible dysmotility 4. follow iron and ferritin levels for adequacy of iron replacement Home Meds Active Scripts Ferrous Sulfate (Iron) 325 Mg Capsule.er, 325 MG PO TID for 30 Days, #90 CAP Prov:ELEANOR TELLES MD 11/19/16 Pantoprazole* (Protonix*) 40 Mg Tablet.dr, 40 MG PO DAILY for 30 Days, #30 TAB Prov:ELEANOR TELLES MD 11/19/16 Mesalamine (Delzicol) 400 Mg Cap., 400 MG PO QID for 30 Days, #120 Prov:ELEANOR TELLES MD 11/19/16 Follow-up Plan 1. Dr Angulo 2. Dr Ribeiro 3. gynecology Primary Care Provider Mikala Pineda MD Time spent on discharge: > 30 minutes Pending Labs Laboratory Tests Test 11/19/16 05:30 White Blood Count 5.610^3/ul (4.8-10.8) Red Blood Count 3.9110^6/ul (4.20-5.40) Hemoglobin 9.1g/dl (12.0-16.0) Hematocrit 29.8% (37.0-47.0) Mean Corpuscular Volume 76.2fl (82.0-101.0) Mean Corpuscular Hemoglobin 23.3pg (29.0-33.0) Mean Corpuscular Hemoglobin Concent 30.5g/dl (32.0-37.0) Red Cell Distribution Width 18.0% (11.5-14.5) Platelet Count 21594^3/UL (140-415) Mean Platelet Volume 12.5fl (7.4-10.4) Neutrophils % 59.2% (39.0-77.0) Lymphocytes % 26.5% (15.0-51.0) Monocytes % 10.2% (0.0-11.0) Eosinophils % 3.2% (0.0-7.0) Basophils % 0.4% (0.0-2.0) Nucleated Red Blood Cells % 0.0/100WBC (0.0-0.0) Neutrophils # 3.310^3/ul (1.6-7.5) Lymphocytes # 1.510^3/ul (0.8-2.9) Monocytes # 0.610^3/ul (0.3-0.9) Eosinophils # 0.210^3/ul (0.0-0.5) Basophils # 0.010^3/ul (0.0-0.1) Nucleated Red Blood Cells # 0.010^3/ul (0.0-0.0) Sodium Level 142mmol/L (135-144) Potassium Level 3.6mmol/L (3.5-5.1) Chloride Level 108mmol/L (97-110) Carbon Dioxide Level 25mmol/L (21-31) Anion Gap 13 (8-16) Blood Urea Nitrogen 5mg/dl (7-20) Creatinine 0.55mg/dl (0.44-1.00) Glucose Level 78mg/dl (70-220) Calcium Level 9.0mg/dl (8.4-10.2) Total Bilirubin 0.2mg/dl (0.2-1.3) Direct Bilirubin 0.00mg/dl (0.00-0.20) Indirect Bilirubin 0.2mg/dl (0-1.1) Aspartate Amino Transf (AST/SGOT) 20IU/L (15-46) Alanine Aminotransferase (ALT/SGPT) 33IU/L (13-69) Alkaline Phosphatase 37IU/L (42-121) Total Protein 6.5g/dl (6.1-8.1) Albumin 3.8g/dl (3.3-4.9) Globulin 2.70g/dl (1.3-3.2) Albumin/Globulin Ratio 1.40 Copies To: CC: MIKALA PINEDA MD; TRACEE RIBEIRO MD, ROBERT E. MD Nov 19, 2016 10:44
[2016-11-19] MEDS: SOD FERRIC GLUC COMPLX 125 MG in SOD CHLORIDE 0.9% 100 ML IVPB SCH (12:29)
--- NOTE | 2016-11-19 15:42 | PN ---
Date/Time of Note Date/Time of Note DATE: 11/19/16 TIME: 15:28 Assessment/Plan VTE Prophylaxis VTE Prophylaxis Intervention: ambulation Lines/Catheters IV C[facility]ter Type (from [facility]): Peripheral IV Urinary Cath still in place: No Assessment/Plan Assessment/Plan Assessment * ssessment * Anemia chronic iron deficiency * Unexplained weight loss * Colonoscopy 10/23/2016 Mild melanosis coli * EGD Mild distal esophagitis moderate gastritis * Helicobacter infection per biopsy * colon biopsy colonic mucosa with benign lymphoid aggregates Plan * Amoxicillin 500 mg BID x 14 days * Clarithromycin 500 mg BID x14 days * Omeprazole 40 mg BID x30 days * Mesalamine 400mg 2tablets #x a day * Follow up at after 6 weeks at our office at [facility] * case was discussed with Plan * will await small bowel series result * start patient on mesalamine Subjective 24 Hr Interval Summary Free Text/Dictation * Course reviewed with RN * Patient seen and examined * CT scan negative for abdominal or pelvic or mass or lymphadenopathy * Mild abdominal pain Exam/Review of Systems Vital Signs Vitals Vital Signs Date Time Temp Pulse Resp B/P Pulse Ox O2 Delivery O2 Flow Rate FiO2 11/19/16 08:11 98.7 65 18 110/51 100 Intake and Output 11/18/16 11/18/16 11/19/16 15:00 23:00 07:00 Intake Total 110 ml 1180 ml Output Total 2750 ml Balance 110 ml -1570 ml Exam Constitutional: alert, oriented Eyes: EOMI, nl conjunctiva, nl sclera Neck: non-tender, supple Respiratory: clear to auscultation, normal air movement Cardiovascular: nl pulses, regular rate and rhythm Gastrointestinal: nl liver, spleen, non-tender, soft Musculoskeletal: nl extremities to inspection Extremities: normal pulses Neurological: nl speech, nl strength Skin: nl turgor, No rash or lesions Lymph: nl lymph nodes Results Result Diagram: 11/19/16 0530 11/19/16 0530 Results 24 hrs Laboratory Tests Test 11/19/16 05:30 White Blood Count 5.6 Red Blood Count 3.91 L Hemoglobin 9.1 L Hematocrit 29.8 L Mean Corpuscular Volume 76.2 L Mean Corpuscular Hemoglobin 23.3 L Mean Corpuscular Hemoglobin Concent 30.5 L Red Cell Distribution Width 18.0 H Platelet Count 184 Mean Platelet Volume 12.5 H Neutrophils % 59.2 Lymphocytes % 26.5 Monocytes % 10.2 Eosinophils % 3.2 Basophils % 0.4 Nucleated Red Blood Cells % 0.0 Neutrophils # 3.3 Lymphocytes # 1.5 Monocytes # 0.6 Eosinophils # 0.2 Basophils # 0.0 Nucleated Red Blood Cells # 0.0 Sodium Level 142 Potassium Level 3.6 Chloride Level 108 Carbon Dioxide Level 25 Anion Gap 13 Blood Urea Nitrogen 5 L Creatinine 0.55 Glucose Level 78 Calcium Level 9.0 Total Bilirubin 0.2 Direct Bilirubin 0.00 Indirect Bilirubin 0.2 Aspartate Amino Transf (AST/SGOT) 20 Alanine Aminotransferase (ALT/SGPT) 33 Alkaline Phosphatase 37 L Total Protein 6.5 Albumin 3.8 Globulin 2.70 Albumin/Globulin Ratio 1.40 Medications Medications Current Medications Potassium Chloride/Dextrose/ Sod Cl (D5-1/2ns + KCl 20 Meq) 1,000 ml @ 100 mls/ hr Q10H IV Last administered on 11/19/16 06:14; Admin Dose 100 MLS/HR; Start 11/14/16 at 23:56 Ondansetron HCl (Zofran Inj) 4 mg Q6H PRN IV NAUSEA AND/OR VOMITING; Start at 00:00 Acetaminophen (Tylenol Tab) 650 mg Q6H PRN PO PAIN LEVEL 1-3 OR FEVER; Start at 00:00 Acetaminophen/ Hydrocodone Bitart ([place] (5/325)) 1 tab Q6H PRN PO MODERATE PAIN LEVEL 4-6; Start 11/15/16 at 00:00 Morphine Sulfate (morphine) 2 mg Q4H PRN IV SEVERE PAIN LEVEL 7-10; Start 11/15 at 00:00 Docusate Sodium (Colace) 100 mg Q12H PRN PO CONSTIPATION; Start 11/15/16 at 00: 00 Zolpidem Tartrate (Ambien) 5 mg QHS PRN PO SLEEP; Start 11/15/16 at 00:00 Pantoprazole (Protonix Iv) 40 mg DAILY@06 IV Last administered on 11/19/16 06: 05; Admin Dose 40 MG; Start 11/15/16 at 06:00 Simethicone (Mylicon) 80 mg Q6 PO Last administered on 11/19/16 12:30; Admin Dose 80 MG; Start 11/15/16 at 00:00 Metoclopramide HCl 5 mg 5 mg Q6H PRN IV NAUSEA; Start 11/15/16 at 00:00 Ferric Sodium Gluconate Complex/ Sodium Chloride (Ferrlecit/NS) 110 ml @ 100 mls/hr Q24H IVPB Last administered on 11/19/16 12:29; Admin Dose 100 MLS/HR; Start 11/18/16 at 11:00; Stop 11/20/16 at 12:05 Mesalamine (Delzicol Dr) 400 mg QID PO Last administered on 11/19/16 12:29; Admin Dose 400 MG; Start 11/18/16 at 17:00 JED BAKER NP Nov 19, 2016 15:41
== END 2016-11-19 17:10 | disposition home or self-care (01) | DRG 641 ==
LOC: E/R 15:51 → MS2 20:50
PROVIDERS: ADMIT Legal Medicine; ATTEND Legal Medicine
DX: R63.4 Abnormal weight loss (principal); R63.0 Anorexia; D50.0 Iron deficiency anemia secondary to blood loss (chronic); E11.9 Type 2 diabetes mellitus without complications; E78.5 Hyperlipidemia, unspecified; D25.2 Subserosal leiomyoma of uterus; E87.6 Hypokalemia; Z80.8 Family history of malignant neoplasm of other organs or systems; Z68.20 Body mass index [BMI] 20.0-20.9, adult; M25.559 Pain in unspecified hip; R52 Pain, unspecified; Z86.19 Personal history of other infectious and parasitic diseases; R11.2 Nausea with vomiting, unspecified; R19.7 Diarrhea, unspecified; R10.9 Unspecified abdominal pain
CPT/HCPCS: 36415; 36430; 70551; 71010; 71270; 73510; 74000; 74176; 74177; 74178; 76700; 76830; 76856; 78264; 80048; 80053; 80061; 81003; 82270; 82378; 82607; 82710; 82728; 82746; 83010; 83036; 83540; 83615; 83690; 83735; 84100; 84436; 84443; 84479; 84484; 84703; 85025; 85610; 85651; 86038; 86430; 86850; 86900; 86901; 86920; 87040; 87086; 87177; 93005; 96374; A9541; C9113; J2405; J2916; J3480; J7030; P9016; Q9967